=== PATIENT | male | born 1950 | race Caucasian/White ===

== ENCOUNTER 2017-01-31 10:27 | Inpatient (IN) | payer MEDICARE, BC ==
--- NOTE | 2017-01-31 10:45 | EDM.PDOC ---
ED HPI GENERAL MEDICAL PROBLEM - General Chief Complaint: General Stated Complaint: [id number] FELL OF LADDER [id number] PAIN Time Seen by Provider: 01/31/17 10:41 Source of Information: Reports: Patient History Limitations: Reports: No Limitations - History of Present Illness INITIAL COMMENTS - FREE TEXT/NARRATIVE: 66 yo white male c/o back pain and difficulty sleeping since fall on 2016. Pt. had Lumbar CT on 01/22/2017 [facility] reports Compression Fratures T9 and L5 Vertebral bodies (age indeterminate). Pt. reports no relief from the Hydrocodone Onset Date: 01/14/17 Onset Time: 12:00 Duration: Week(s):, Getting Worse Location: Reports: Back Quality: Reports: Ache Severity: Moderate Improves with: Reports: Rest Worsens with: Reports: Movement Context: Reports: Trauma, Other (arthritis) Associated Symptoms: Reports: No Other Symptoms Left Leg Pain Score (Numeric/FACES): 10 - Related Data Allergies Allergy/AdvReac Type Severity Reaction Status Date / Time bacitracin [From Cortisporin] Allergy Swelling Verified 01/31/17 10:52 hydrocortisone Allergy Swelling Verified 01/31/17 10:52 [From Cortisporin] neomycin [From Cortisporin] Allergy Swelling Verified 01/31/17 10:52 polymyxin B Allergy Swelling Verified 01/31/17 10:52 [From Cortisporin] Home Meds: Home Meds Aspirin 325 mg PO DAILY 05/02/13 [History] traZODone 100 mg PO BEDTIME 05/02/13 [History] Metoprolol Succinate [Toprol Xl] 25 mg PO DAILY 07/13/16 [History] Multivitamin [Daily Multiple Vitamin] 1 tab PO DAILY 07/14/16 [History] Sertraline [Zoloft] 125 mg PO DAILY 07/14/16 [History] Torsemide 20 mg PO BID 07/14/16 [History] atorvaSTATin [Lipitor] 20 mg PO DAILY 07/14/16 [History] Hydrocodone/Acetaminophen [Hydrocodon-Acetaminophen 5-325] 2 tab PO ASDIRECTED PRN 01/31/17 [History] predniSONE [predniSONE] 60 mg PO DAILY 01/31/17 [History] traZODone 01/31/17 [History] Social & Family History - Tobacco Use Second Hand Smoke Exposure: No - Alcohol Use Days Per Week of Alcohol Use: 0 - Recreational Drug Use Recreational Drug Use: No ED ROS GENERAL - Review of Systems Review Of Systems: See Below Constitutional: Reports: Weight Loss HEENT: Reports: No Symptoms Respiratory: Reports: No Symptoms Cardiovascular: Reports: No Symptoms Endocrine: Reports: No Symptoms GI/Abdominal: Reports: No Symptoms : Reports: No Symptoms Musculoskeletal: Reports: Back Pain Skin: Reports: No Symptoms Neurological: Reports: No Symptoms Psychiatric: Reports: No Symptoms Hematologic/Lymphatic: Reports: No Symptoms Immunologic: Reports: No Symptoms ED EXAM, GENERAL - Physical Exam Exam: See Below Exam Limited By: No Limitations General Appearance: Alert, No Apparent Distress, Obese Eye Exam: Bilateral Eye: EOMI Ears: Normal External Exam Ear Exam: Bilateral Ear: TM normal Nose: Normal Inspection, Normal Mucosa Throat/Mouth: Normal Inspection, Normal Lips Head: Atraumatic, Normocephalic Neck: Normal Inspection, Supple Respiratory/Chest: No Respiratory Distress, Lungs Clear Cardiovascular: Normal Peripheral Pulses, Regular Rate, Rhythm Peripheral Pulses: 2+: Femoral (L), Femoral (R) GI/Abdominal: Normal Bowel Sounds, Soft Back Exam: Normal Inspection, Decreased Range of Motion, Other (low back tenderness) Extremities: Normal Inspection, Normal Range of Motion Neurological: Alert, Oriented, CN II-XII Intact, Normal Cognition Psychiatric: Anxious Skin Exam: Warm, Dry Lymphatic: No Adenopathy Course - Vital Signs Last Recorded V/S: Last Vital Signs Temp 36.1 C 01/31/17 10:35 Pulse 96 01/31/17 10:35 Resp 20 01/31/17 10:35 BP 114/65 01/31/17 10:35 Pulse Ox 99 01/31/17 10:35 - Orders/Labs/Meds Orders: Active Orders 24 hr Category Date Time Status UA W/MICROSCOPIC [URIN] Stat Lab 01/31/17 11:42 Ordered Labs: Laboratory Tests 01/31/17 01/31/17 Range/Units 11:04 11:04 WBC 12.0 H (5.0-10.0) 10^3/uL RBC 5.12 (4.6-6.2) 10^6/uL Hgb 16.1 (14.0-18.0) g/dL Hct 48.1 (40.0-54.0) % MCV 93.9 (80-100) fL MCH 31.4 (27.0-34.0) pg MCHC 33.5 (33.0-35.0) g/dL Plt Count 222 (150-450) 10^3/uL Neut % (Auto) 77.5 H (42.2-75.2) % Lymph % (Auto) 13.9 L (20.5-50.1) % [place] % (Auto) 6.4 (2-8) % Eos % (Auto) 2.0 (1.0-3.0) % Baso % (Auto) 0.2 (0.0-1.0) % Add Manual Diff Yes Neutrophils % (Manual) 82 % Band Neutrophils % 1 % Lymphocytes % (Manual) 13 % Monocytes % (Manual) 3 % Eosinophils % (Manual) 1 % Sodium 137 (135-145) mmol/L Potassium 3.8 (3.6-5.0) mmol/L Chloride 95 L (101-111) mmol/L Carbon Dioxide 27.0 (21.0-31.0) mmol/L Anion Gap 18.8 BUN 23 H (7-18) mg/dL Creatinine 0.9 (0.6-1.3) mg/dL Est Cr Clr Drug Dosing 96.44 mL/min Estimated GFR (MDRD) > 60 BUN/Creatinine Ratio 25.55 Glucose 158 H (74-105) mg/dL Calcium 9.7 (8.4-10.2) mg/dl Total Bilirubin 1.1 H (0.2-1.0) mg/dL AST 44 H (10-42) IU/L ALT 63 H (10-60) IU/L Alkaline Phosphatase 216 H (42-121) IU/L Total Protein 7.7 (6.7-8.2) g/dl Albumin 3.9 (3.2-5.5) g/dl Globulin 3.8 Albumin/Globulin Ratio 1.03 Meds: Medications Discontinued Medications Generic Name Dose Route Start Last Admin Trade Name Freq PRN Reason Stop Dose Admin Hydromorphone HCl 1 mg 01/31/17 10:52 01/31/17 11:17 Dilaudid IVPUSH 01/31/17 10:53 1 mg ONETIME ONE Administration Ketorolac Tromethamine 30 mg 01/31/17 10:52 01/31/17 11:18 Toradol IVPUSH 01/31/17 10:53 30 mg ONETIME ONE Administration Lorazepam 1 mg 01/31/17 11:07 Ativan IVPUSH 01/31/17 11:08 ONETIME ONE Orphenadrine Citrate 60 mg 01/31/17 10:52 01/31/17 11:09 Norflex IM 01/31/17 10:53 60 mg NOW STA Administration Departure - Departure Time of Disposition: 11:50 Disposition: Admitted As Inpatient 64 Condition: Fair Clinical Impression: DDD (degenerative disc disease), lumbar - Discharge Information Referrals: Rosas Linton MD [Physician] - Forms: ED Department Discharge - My Orders Last 24 Hours: My Active Orders 01/31/17 11:42 UA W/MICROSCOPIC [URIN] Stat - Assessment/Plan Last 24 Hours: My Active Orders 01/31/17 11:42 UA W/MICROSCOPIC [URIN] Stat
[2017-01-31] MEDS ORDERED: Ketorolac 30 MG/ML SDV IVPUSH ONE (10:52)
[2017-01-31] MEDS ORDERED: HYDROmorphone 1 MG/ML Syringe IVPUSH ONE (10:52)
[2017-01-31] MEDS ORDERED: LORazepam 2 MG/ML Syringe IVPUSH ONE (11:07)
[2017-01-31 11:32] LABS: CHLORIDE,CL 95 mmol/L (101-111); SODIUM,NA 137 mmol/L (135-145)
[2017-01-31] MEDS ORDERED: HYDROmorphone 1 MG/ML Syringe IVPUSH PRN (12:09)
[2017-01-31] MEDS ORDERED: Docusate Sodium 100 MG Cap PO PRN (12:09)
[2017-01-31] MEDS ORDERED: Sodium Chloride 0.9% 10 ML Syringe FLUSH PRN (12:09)
[2017-01-31] MEDS ORDERED: Acetaminophen 325 MG Tab PO PRN (12:09)
[2017-01-31] MEDS ORDERED: LORazepam 1 MG Tab PO PRN (12:18)
[2017-01-31] MEDS: Acetaminophen/HYDROcodone 325-10 MG Tab PO PRN ×2 (16:35→20:37)
--- NOTE | 2017-01-31 19:15 | HP ---
CHIEF COMPLAINT: Low back pain, radiating to the left leg. HISTORY OF PRESENT ILLNESS: The patient is a 66-year-old gentleman who was admitted through the emergency room because the patient continued to have low back pain radiating to the left leg, and this has been going on since January 14 after he fell off the ladder. The patient has been seen by Montse Durbin NP, at the clinic. He had a CAT scan of the LS spine on 01/22/2017 which showed compression fracture of T9 and L5; and he has been given hydrocodone 5/325 two tablets every 6 hours, but it is just not cutting off the pain. He has difficulty sleeping. He also complained that his left foot is feeling numb. He denies though any bowel or bladder incontinence. Denies any fever or chills, chest pain, shortness of breath, nor any other complaints. PAST MEDICAL HISTORY: Remarkable for atrial fibrillation/flutter, status post pacemaker placement. He has had a pulmonary fibrosis, hypokalemia, disk disease of the LS spine, and obesity. FAMILY HISTORY: Noncontributory. SOCIAL HISTORY: The patient is . Lives with his . Nonsmoker. Nonalcohol drinker. HOME MEDICATIONS: 1. Prednisone. 2. Aspirin. 3. Hydrocodone. 4. Multivitamins. 5. Metoprolol. 6. Lipitor. 7. Torsemide. 8. Zoloft. 9. Trazodone. ALLERGIES: Bacitracin, hydrocortisone, neomycin, and polymyxin. REVIEW OF SYSTEMS: As in HPI. The rest of the review of systems is negative. PHYSICAL EXAMINATION: General: The patient is alert, oriented, in moderate distress from the low back pain. Vital Signs: Blood pressure is 129/82, pulse of 74, respirations of 18. HEENT: Normocephalic. There is pink palpebral conjunctiva. Sclerae anicteric. Neck: No JVD. No lymphadenopathy. Heart: Regular rate and rhythm. Normal S1 and S2. No gallops. No rubs. Lungs: Diminished breath sounds on both bases but no significant crackles, no wheezing. Abdomen: Morbidly obese, but soft and nontender. Bowel sounds positive. Extremities: Remarkable for stasis changes bilaterally and trace to 1+ bilateral pedal edema. No calf tenderness, no signs of cellulitis, and straight leg raising is positive on the left leg. Spine: There is also reproducible tenderness on the LS spine with palpation. LABORATORY DATA: CBC; WBC is 12, hemoglobin is 16.1, hematocrit is 48.1, platelet is 222. Comp panel; chloride of 95, BUN is 23, glucose is 158, bilirubin of 1.1, AST is 44, ALT of 63, alkaline phosphatase is 216. Urinalysis unremarkable. ADMITTING DIAGNOSES: 1. Intractable low back pain, radiating to the left leg secondary to compression fracture of T9 and L5. 2. History of fall. 3. Morbid obesity. 4. History of atrial flutter, status post permanent pacemaker placement. 5. Pulmonary fibrosis. TREATMENT PLAN: The patient is going to be admitted to Acute Care. He will be started on IV pain medication to control the pain as this is not being controlled by his oral hydrocodone at home. He will be on some muscle relaxants, and we will send him for physical therapy for evaluation and management. He also will be resumed on his home medication and the rest of the management as necessary. The patient is a full code. [facility] /[id number]
[2017-01-31] MEDS: Torsemide 20 MG Tab PO SCH (19:23)
[2017-01-31] MEDS: Albuterol/Ipratropium 3.0-0.5 MG/3 ML Neb Soln NEB SCH ×2 (19:24→23:43)
[2017-01-31] MEDS: Budesonide 0.5 MG/2 ML Neb Susp INH SCH (19:25)
[2017-01-31] MEDS: traZODone 50 MG Tab PO SCH (20:36)
[2017-01-31] MEDS: Cyclobenzaprine 10 MG Tab PO SCH (20:38)
[2017-02-01] MEDS: Albuterol/Ipratropium 3.0-0.5 MG/3 ML Neb Soln NEB SCH ×7 (03:52→22:11)
[2017-02-01] MEDS: Acetaminophen/HYDROcodone 325-10 MG Tab PO PRN ×2 (03:57→09:00)
[2017-02-01] MEDS: Acetaminophen/oxyCODONE 325-5 MG Tab PO PRN ×2 (08:30→16:34)
[2017-02-01] MEDS: Enoxaparin 40 MG/0.4 ML Syringe SUBCUT SCH (08:47)
[2017-02-01] MEDS: atorvaSTATin 20 MG Tab PO SCH (08:48)
[2017-02-01] MEDS: predniSONE 20 MG Tab PO SCH (08:51)
[2017-02-01] MEDS: Aspirin 325 MG Tab PO SCH (08:51)
[2017-02-01] MEDS: Sertraline 50 MG Tab PO SCH (08:58)
[2017-02-01] MEDS: Metoprolol Succinate 25 MG Tab.ER PO SCH (08:59)
[2017-02-01] MEDS: Torsemide 20 MG Tab PO SCH ×2 (08:59→14:40)
[2017-02-01] MEDS: Multivitamins,Therapeutic Tab PO SCH (09:00)
[2017-02-01] MEDS ORDERED: Sulfamethoxazole/Trimethoprim 800-160 MG Tab PO SCH (09:00)
[2017-02-01] MEDS: Cyclobenzaprine 10 MG Tab PO SCH ×2 (09:00→20:45)
[2017-02-01] MEDS: Budesonide 0.5 MG/2 ML Neb Susp INH SCH ×4 (09:01→18:22)
--- NOTE | 2017-02-01 11:06 | PCM.PN ---
- General Info Date of Service: 02/01/17 Admission Dx/Problem (Free Text): Intractable lower back pain Subjective Update: Patient stated that his lower back pain is somewhat better. He is still complaining of lower back pain radiates to his left leg with left foot numbness. He denies lower extremities weakness, difficulty urinating or defecating, genital numbness or tingling, fever, chills, nausea, vomiting, abdominal pain, diarrhea, any other symptoms or concerns. - Patient Data Vitals - Most Recent: Last Vital Signs Temp 36.1 C 02/01/17 07:53 Pulse 78 02/01/17 09:37 Resp 20 02/01/17 07:53 BP 115/53 L 02/01/17 08:59 Pulse Ox 96 02/01/17 07:53 Weight - Most Recent: 141.067 kg I&O - Last 24 Hours: Intake & Output 01/31/17 02/01/17 02/01/17 22:59 06:59 14:59 Intake Total 200 200 Output Total 225 1600 Balance -25 -1400 Med Orders - Current: Current Medications Acetaminophen (Tylenol) 650 mg PO Q4H PRN PRN Reason: Pain (Mild 1-3)/fever Albuterol/Ipratropium (Duoneb 3.0-0.5 Mg/3 Ml) 3 ml NEB Q4HRRT [facility] Last Admin: 02/01/17 10:24 Dose: Not Given Aspirin (Aspirin) 325 mg PO DAILY [facility] Last Admin: 02/01/17 08:51 Dose: 325 mg Atorvastatin Calcium (Lipitor) 20 mg PO DAILY [facility] Last Admin: 02/01/17 08:48 Dose: 20 mg Budesonide (Pulmicort) 0.25 mg INH BIDRT [facility] Last Admin: 02/01/17 10:23 Dose: Not Given Cyclobenzaprine HCl (Flexeril) 10 mg PO BID [facility] Last Admin: 02/01/17 09:00 Dose: 10 mg Docusate Sodium (Colace) 100 mg PO BID PRN PRN Reason: Constipation Enoxaparin Sodium (Lovenox) 40 mg SUBCUT DAILY [facility] Last Admin: 02/01/17 08:47 Dose: 40 mg Hydromorphone HCl (Dilaudid) 0.5 mg IVPUSH Q2H PRN PRN Reason: Pain (severe 7-10) Lorazepam (Ativan) 1 mg PO BEDTIME PRN PRN Reason: Anxiety Metoprolol Succinate (Toprol Xl) 25 mg PO DAILY [facility] Last Admin: 02/01/17 08:59 Dose: 25 mg Multivitamins (Thera) 1 each PO DAILY [facility] Last Admin: 02/01/17 09:00 Dose: 1 each Prednisone (Prednisone) 60 mg PO DAILY [facility] Last Admin: 02/01/17 08:51 Dose: 60 mg Sertraline HCl (Zoloft) 125 mg PO DAILY [facility] Last Admin: 02/01/17 08:58 Dose: 125 mg Sodium Chloride (Saline Flush) 10 ml FLUSH ASDIRECTED PRN PRN Reason: Keep Vein Open Torsemide (Demadex) 20 mg PO BIDDIURETIC [facility] Last Admin: 02/01/17 08:59 Dose: 20 mg Trazodone HCl (Trazodone) 100 mg PO BEDTIME [facility] Last Admin: 01/31/17 20:36 Dose: 100 mg Trimethoprim/Sulfamethoxazole (Septra Ds) 1 tab PO MoWeFr@0900 [facility] Last Admin: 02/01/17 08:59 Dose: 1 tab Discontinued Medications Hydrocodone Bitart/Acetaminophen ([place] 325-10 Mg) 1 tab PO Q4H PRN PRN Reason: Pain (moderate 4-6) Last Admin: 02/01/17 09:00 Dose: 1 tab Hydromorphone HCl (Dilaudid) 1 mg IVPUSH ONETIME ONE Stop: 01/31/17 10:53 Last Admin: 01/31/17 11:17 Dose: 1 mg Ketorolac Tromethamine (Toradol) 30 mg IVPUSH ONETIME ONE Stop: 01/31/17 10:53 Last Admin: 01/31/17 11:18 Dose: 30 mg Lorazepam (Ativan) 1 mg IVPUSH ONETIME ONE Stop: 01/31/17 11:08 Last Admin: 01/31/17 11:57 Dose: Not Given Orphenadrine Citrate (Norflex) 60 mg IM NOW STA Stop: 01/31/17 10:53 Last Admin: 01/31/17 11:09 Dose: 60 mg - Exam General: Alert, Oriented, Cooperative, No Acute Distress, Mild Distress (From pain) HEENT: Pupils Equal, Pupils Reactive, EOMI, Mucous Membr. Moist/[place] Neck: Supple, Trachea Midline, No JVD Lungs: Clear to Auscultation, Normal Respiratory Effort Cardiovascular: Regular Rate, Regular Rhythm GI/Abdominal Exam: Normal Bowel Sounds, Soft, Non-Tender, No Organomegaly, No Distention, No Abnormal Bruit, No Mass, Pelvis Stable Back Exam: Normal Inspection, Decreased Range of Motion, Muscle Spasm, Paraspinal Tenderness, Vertebral Tenderness. No: CVA Tenderness (L), CVA Tenderness (R) Extremities: Normal Inspection, Normal Range of Motion, Non-Tender, No Pedal Edema, Normal Capillary Refill Skin: Warm, Dry, Intact Neurological: No New Focal Deficit Psy/Mental Status: Alert, Normal Affect, Normal Mood - Problem List Review Problem List Initiated/Reviewed/Updated: Yes - My Orders Last 24 Hours: My Active Orders 02/01/17 11:02 BASIC METABOLIC PANEL,BMP [CHEM] Routine CBC WITH AUTO DIFF [HEME] Routine Acetaminophen/oxyCODONE [Percocet 325-5 MG] 1 tab PO Q4H PRN - Plan Plan:: Acute on chronic lower back pain with radiculopathy to the left leg -Thoracolumbar -Change hydrocodone/acetaminophen to oxycodone/acetaminophen -Continue Flexeril -Dilaudid as needed -Continue prednisone 60 mg daily -Continue physical therapy Insomnia From pain Ativan as needed for sleep which we'll may help with his muscle spasm as well Leukocytosis WBC on admission 12,000 -Recheck CBC History of COPD without exacerbation Continue Pulmicort and DuoNeb Essential hypertension Continue metoprolol Continue Lovenox for DVT prophylaxis
[2017-02-01] MEDS: traZODone 50 MG Tab PO SCH (20:45)
[2017-02-02] MEDS: Acetaminophen/oxyCODONE 325-5 MG Tab PO PRN ×3 (01:25→10:23)
[2017-02-02] MEDS: Albuterol/Ipratropium 3.0-0.5 MG/3 ML Neb Soln NEB SCH ×4 (02:14→15:27)
[2017-02-02 06:56] LABS: CHLORIDE,CL 98 mmol/L (101-111); SODIUM,NA 141 mmol/L (135-145)
[2017-02-02] MEDS: Budesonide 0.5 MG/2 ML Neb Susp INH SCH (07:25)
[2017-02-02] MEDS: Aspirin 325 MG Tab PO SCH (10:14)
[2017-02-02] MEDS: Sertraline 50 MG Tab PO SCH (10:15)
[2017-02-02] MEDS: predniSONE 20 MG Tab PO SCH (10:16)
[2017-02-02] MEDS: atorvaSTATin 20 MG Tab PO SCH (10:17)
[2017-02-02] MEDS: Torsemide 20 MG Tab PO SCH ×2 (10:17→14:46)
[2017-02-02] MEDS: Cyclobenzaprine 10 MG Tab PO SCH (10:17)
[2017-02-02] MEDS: Multivitamins,Therapeutic Tab PO SCH (10:17)
[2017-02-02] MEDS: Metoprolol Succinate 25 MG Tab.ER PO SCH (10:18)
[2017-02-02] MEDS: Enoxaparin 40 MG/0.4 ML Syringe SUBCUT SCH (10:21)
[2017-02-02 10:25] VITALS: BP 118/59
[2017-02-02] MEDS ORDERED: Potassium Chloride 10 MEQ Tab.ER PO ONE (11:08)
--- NOTE | 2017-02-02 14:26 | PCM.DCSUM1 ---
Discharge Summary - Hospital Course Free Text/Narrative:: 66-year-old male was the past medical history of atrial fibrillation, pulmonary fibrosis, hypokalemia, and degenerative spine disease presented to the MRSA room for worsening lower back pain that radiates to left leg. His pain started after falling on his bottom last month and on January 22, 2017 CT scan of spine showed compression fracture of T9 and L5. Hydrocodone was not helping at home. Patient denies lower extremities weakness, difficulty urinating or defecating, genital numbness or tingling, abdominal pain, blood in the stool or black stool, chest pain, shortness breath, or any other symptoms or concern. Patient was started on hydromorphone IV and yesterday was started on Percocet and Flexeril and his pain is well controlled. Patient has not had any new symptoms since admission. Patient is discharged home to do outpatient physical therapy follow-up with primary care and neurosurgery and take Percocet and Flexeril. Lumbar x-ray is consistent with compression vertebrae fracture of T11 , T9, L5. Workup was significant for WBC of 12,000 which possibly from his chronic prednisone that he takes for his pulmonary fibrosis. Patient stated that his boilermaker mechanic want him to stay on prednisone 60 mg until he sees him in a few weeks. Patient potassium was 3.3 today so he was given potassium chloride 40 mEq by mouth once. Patient verbalized understanding and agreed with plan - Discharge Data Discharge Date: 02/02/17 Discharge Disposition: Home, Self-Care 01 Condition: Good - Patient Instructions Diet: Heart Healthy Diet Activity: As Tolerated Showering/Bathing: September Shower Notify Provider of: Fever, Increased Pain, Nausea and/or Vomiting - Discharge Plan Prescriptions/Med Rec: Acetaminophen/oxyCODONE [Percocet 325-5 MG] 1 tab PO Q4H PRN #30 tablet PRN Reason: Lower back pain Cyclobenzaprine [Flexeril] 10 mg PO TID PRN #30 tablet PRN Reason: Muscle Spasm Home Medications: Home Meds Aspirin 325 mg PO DAILY 05/02/13 [History] traZODone 100 mg PO BEDTIME 05/02/13 [History] Metoprolol Succinate [Toprol Xl] 25 mg PO DAILY 07/13/16 [History] Multivitamin [Daily Multiple Vitamin] 1 tab PO DAILY 07/14/16 [History] Sertraline [Zoloft] 125 mg PO DAILY 07/14/16 [History] Torsemide 20 mg PO BID 07/14/16 [History] atorvaSTATin [Lipitor] 20 mg PO DAILY 07/14/16 [History] Albuterol/Ipratropium [DuoNeb 3.0-0.5 MG/3 ML] 3 ml NEB Q4HRRT 01/31/17 [History ] Budesonide [Pulmicort] 0.25 mg NEB BIDRT 01/31/17 [History] Sulfamethoxazole/Trimethoprim [Bactrim Ds Tablet] 1 each PO .TRIWEEKLY 01/31/17 [History] predniSONE 60 mg PO DAILY 01/31/17 [History] Acetaminophen/oxyCODONE [Percocet 325-5 MG] 1 tab PO Q4H PRN #30 tablet [Rx] Cyclobenzaprine [Flexeril] 10 mg PO TID PRN #30 tablet 02/02/17 [Rx] Patient Handouts: Acetaminophen; Oxycodone tablets, Back Pain, Adult, Easy-to- Read, Spinal Compression Fracture Referrals: Rosas Linton MD [Physician] - - Patient Data Vitals - Most Recent: Last Vital Signs Temp 36.6 C 02/02/17 10:20 Pulse 82 02/02/17 11:00 Resp 20 02/02/17 10:20 BP 118/59 L 02/02/17 10:20 Pulse Ox 98 02/02/17 10:20 Weight - Most Recent: 141.067 kg I&O - Last 24 hours: Intake & Output 02/01/17 02/02/17 02/02/17 22:59 06:59 14:59 Intake Total 621 270 2640 Output Total 1850 750 650 Balance -1450 -200 530 Lab Results - Last 24 hrs: Laboratory Results - last 24 hr 02/02/17 02/02/17 Range/Units 06:09 06:09 WBC 12.4 H (5.0-10.0) 10^3/uL RBC 4.82 (4.6-6.2) 10^6/uL Hgb 15.0 (14.0-18.0) g/dL Hct 46.4 (40.0-54.0) % MCV 96.3 (80-100) fL MCH 31.1 (27.0-34.0) pg MCHC 32.3 L (33.0-35.0) g/dL Plt Count 226 (150-450) 10^3/uL Neut % (Auto) 71.7 (42.2-75.2) % Lymph % (Auto) 18.9 L (20.5-50.1) % [place] % (Auto) 8.2 H (2-8) % Eos % (Auto) 1.0 (1.0-3.0) % Baso % (Auto) 0.2 (0.0-1.0) % Sodium 141 (135-145) mmol/L Potassium 3.3 L (3.6-5.0) mmol/L Chloride 98 L (101-111) mmol/L Carbon Dioxide 33.0 H (21.0-31.0) mmol/L Anion Gap 13.3 BUN 24 H (7-18) mg/dL Creatinine 1.0 (0.6-1.3) mg/dL Est Cr Clr Drug Dosing 86.80 mL/min Estimated GFR (MDRD) > 60 Glucose 96 (74-105) mg/dL Calcium 9.2 (8.4-10.2) mg/dl Med Orders - Current: Current Medications Acetaminophen (Tylenol) 650 mg PO Q4H PRN PRN Reason: Pain (Mild 1-3)/fever Albuterol/Ipratropium (Duoneb 3.0-0.5 Mg/3 Ml) 3 ml NEB Q4HRRT [facility] Last Admin: 02/02/17 11:49 Dose: 3 ml Aspirin (Aspirin) 325 mg PO DAILY [facility] Last Admin: 02/02/17 10:14 Dose: 325 mg Atorvastatin Calcium (Lipitor) 20 mg PO DAILY [facility] Last Admin: 02/02/17 10:17 Dose: 20 mg Budesonide (Pulmicort) 0.25 mg INH BIDRT [facility] Last Admin: 02/02/17 07:25 Dose: 0.25 mg Cyclobenzaprine HCl (Flexeril) 10 mg PO BID [facility] Last Admin: 02/02/17 10:17 Dose: 10 mg Docusate Sodium (Colace) 100 mg PO BID PRN PRN Reason: Constipation Enoxaparin Sodium (Lovenox) 40 mg SUBCUT DAILY [facility] Last Admin: 02/02/17 10:21 Dose: 40 mg Hydromorphone HCl (Dilaudid) 0.5 mg IVPUSH Q2H PRN PRN Reason: Pain (severe 7-10) Lorazepam (Ativan) 1 mg PO BEDTIME PRN PRN Reason: Anxiety Metoprolol Succinate (Toprol Xl) 25 mg PO DAILY [facility] Last Admin: 02/02/17 10:18 Dose: 25 mg Multivitamins (Thera) 1 each PO DAILY [facility] Last Admin: 02/02/17 10:17 Dose: 1 each Oxycodone/Acetaminophen (Percocet 325-5 Mg) 1 tab PO Q4H PRN PRN Reason: Moderate to severe back pain Last Admin: 02/02/17 10:23 Dose: 1 tab Prednisone (Prednisone) 60 mg PO DAILY [facility] Last Admin: 02/02/17 10:16 Dose: 60 mg Sertraline HCl (Zoloft) 125 mg PO DAILY [facility] Last Admin: 02/02/17 10:15 Dose: 125 mg Sodium Chloride (Saline Flush) 10 ml FLUSH ASDIRECTED PRN PRN Reason: Keep Vein Open Last Admin: 02/01/17 21:00 Dose: 10 ml Torsemide (Demadex) 20 mg PO BIDDIURETIC [facility] Last Admin: 02/02/17 10:17 Dose: 20 mg Trazodone HCl (Trazodone) 100 mg PO BEDTIME [facility] Last Admin: 02/01/17 20:45 Dose: 100 mg Trimethoprim/Sulfamethoxazole (Septra Ds) 1 tab PO MoWeFr@0900 [facility] Last Admin: 02/01/17 08:59 Dose: 1 tab Discontinued Medications Hydrocodone Bitart/Acetaminophen ([place] 325-10 Mg) 1 tab PO Q4H PRN PRN Reason: Pain (moderate 4-6) Last Admin: 02/01/17 09:00 Dose: 1 tab Hydromorphone HCl (Dilaudid) 1 mg IVPUSH ONETIME ONE Stop: 01/31/17 10:53 Last Admin: 01/31/17 11:17 Dose: 1 mg Ketorolac Tromethamine (Toradol) 30 mg IVPUSH ONETIME ONE Stop: 01/31/17 10:53 Last Admin: 01/31/17 11:18 Dose: 30 mg Lorazepam (Ativan) 1 mg IVPUSH ONETIME ONE Stop: 01/31/17 11:08 Last Admin: 01/31/17 11:57 Dose: Not Given Orphenadrine Citrate (Norflex) 60 mg IM NOW STA Stop: 01/31/17 10:53 Last Admin: 01/31/17 11:09 Dose: 60 mg Potassium Chloride (Klor-Con 10) 40 meq PO ONETIME ONE Stop: 02/02/17 11:09 Last Admin: 02/02/17 11:46 Dose: 40 meq - Exam General: Reports: Alert, Oriented, Cooperative, No Acute Distress. Denies: Moderate Distress, Severe Distress, Sedated, Lethargic, Obtunded HEENT: Reports: Pupils Equal, Pupils Reactive, EOMI, Mucous Membr. Moist/[place] Neck: Reports: Supple, Trachea Midline, No JVD Lungs: Reports: Clear to Auscultation, Normal Respiratory Effort Cardiovascular: Reports: Regular Rate, Regular Rhythm GI/Abdominal Exam: Normal Bowel Sounds, Soft, Non-Tender, No Organomegaly, No Distention, No Abnormal Bruit, No Mass, Pelvis Stable (Male) Exam: Deferred Rectal (Males) Exam: Deferred Back Exam: Reports: Decreased Range of Motion, Muscle Spasm, Paraspinal Tenderness, Vertebral Tenderness Extremities: Normal Inspection, Normal Range of Motion, Non-Tender, No Pedal Edema, Normal Capillary Refill Skin: Reports: Warm, Dry Neurological: Reports: No New Focal Deficit Psy/Mental Status: Reports: Alert, Normal Affect, Normal Mood *Q Meaningful Use (DIS) - VTE *Q VTE Criteria *Q: - Stroke *Q Stroke Criteria *Q: - AMI *Q AMI Criteria *Q:
== END 2017-02-02 15:20 | disposition home or self-care (01) | DRG 948 ==
LOC: DL.ED 10:27 → UNDOADMIN 11:57 → DL.MS 11:57
PROVIDERS: ADMIT Internal Medicine; ATTEND Internal Medicine
DX: G89.11 Acute pain due to trauma (principal); M51.36 Other intervertebral disc degeneration, lumbar region; I48.92 Unspecified atrial flutter; S22.059A Unspecified fracture of T5-T6 vertebra, initial encounter for closed fracture; S32.059A Unspecified fracture of fifth lumbar vertebra, initial encounter for closed fracture; M54.5 Low back pain; M54.10 Radiculopathy, site unspecified; M51.37 Other intervertebral disc degeneration, lumbosacral region; I48.91 Unspecified atrial fibrillation; E87.6 Hypokalemia; J84.10 Pulmonary fibrosis, unspecified; Z68.37 Body mass index [BMI] 37.0-37.9, adult; Z79.82 Long term (current) use of aspirin; E66.01 Morbid (severe) obesity due to excess calories; Z91.81 History of falling; G47.01 Insomnia due to medical condition; W11.XXXA Fall on and from ladder, initial encounter; Z95.0 Presence of cardiac pacemaker; Z79.899 Other long term (current) drug therapy; Z88.8 Allergy status to other drugs, medicaments and biological substances; J44.9 Chronic obstructive pulmonary disease, unspecified; G89.29 Other chronic pain; I10 Essential (primary) hypertension
CPT/HCPCS: 36415; 80053; 81001; 85025; 96372; 96374; 96375; 99284; J1170; J1885; J2360; 72080; 80048; 94640; 94640-76; 97162-GP; 99283; A9270-GY; J1650; J7050

== ENCOUNTER 2017-09-20 12:38 | Observation (INO) | payer MEDICARE, BC ==
[2017-09-20] MEDS ORDERED: Ondansetron 4 MG Tab.DIS PO PRN (13:58)
--- NOTE | 2017-09-20 14:12 | PCM.HP ---
H&P History of Present Illness - General Date of Service: 09/20/17 Admit Problem/Dx: Admission Diagnosis/Problem Admission Diagnosis/Problem Back pain Source of Information: Patient, Provider - History of Present Illness Initial Comments - Free Text/Narative: 58-year-old gentleman with a history of prior lumbar spine compression fracture. Has a history of vertebroplasty. The patient has been getting injections a in [place]. He has been having increased back pain in the past 2 months which got further exacerbated in the past 2 days after doing gardening. Scribing low back pain across of the lumbar spine and also in the paraspinal muscles. This is worse with activity as bending, started to take Percocet which provides some relief. Heat therapy is improving the pain. No associated urine or bowel incontinence. No problem with motor weakness in the lower extremities. The pain is sharp and nonradiating. - Related Data Allergies/Adverse Reactions: Allergies Allergy/AdvReac Type Severity Reaction Status Date / Time bacitracin [From Cortisporin] Allergy Swelling Verified 09/20/17 13:16 hydrocortisone Allergy Swelling Verified 09/20/17 13:16 [From Cortisporin] neomycin [From Cortisporin] Allergy Swelling Verified 09/20/17 13:16 polymyxin B Allergy Swelling Verified 09/20/17 13:16 [From Cortisporin] Home Medications: Home Meds traZODone 100 mg PO BEDTIME 05/02/13 [History] Metoprolol Succinate [Toprol Xl] 25 mg PO DAILY 07/13/16 [History] Multivitamin [Daily Multiple Vitamin] 1 tab PO DAILY 07/14/16 [History] Torsemide 10 mg PO BID 07/14/16 [History] atorvaSTATin [Lipitor] 20 mg PO DAILY 07/14/16 [History] Albuterol/Ipratropium [DuoNeb 3.0-0.5 MG/3 ML] 3 ml NEB BID 01/31/17 [History] Budesonide [Pulmicort] 0.25 mg NEB BIDRT 01/31/17 [History] Sulfamethoxazole/Trimethoprim [Bactrim Ds Tablet] 1 each PO .TRIWEEKLY 01/31/17 [History] predniSONE 20 mg PO DAILY 01/31/17 [History] Acetaminophen/oxyCODONE [Percocet 325-5 MG] 1 tab PO Q6H PRN 09/20/17 [History] DULoxetine [Cymbalta] 30 mg PO DAILY 09/20/17 [History] Fluticasone Propionate [Flonase] 16 gm NS BID 09/20/17 [History] Gabapentin [Neurontin] 100 mg PO DAILY 09/20/17 [History] Warfarin [Coumadin] 5 mg PO .SA,LEROY 09/20/17 [History] Warfarin [Coumadin] 7.5 mg PO .M,T,W,TH,F 09/20/17 [History] Past Medical History HEENT History: Reports: Impaired Vision Other HEENT History: wears glasses Cardiovascular History: Reports: Afib, High Cholesterol, Hypertension, Pacemaker , Other (See Below) Other Cardiovascular History: pacemaker placed 11/26/16 Respiratory History: Reports: Sleep Apnea, Other (See Below) Other Respiratory History: idiopathic pulmonary fibrosis Gastrointestinal History: Reports: None Genitourinary History: Reports: None Musculoskeletal History: Reports: Back Pain, Chronic, Fracture Neurological History: Reports: Neuropathy, Peripheral Psychiatric History: Reports: Addiction Endocrine/Metabolic History: Reports: Obesity/BMI 30+ Hematologic History: Reports: None Immunologic History: Reports: None Oncologic (Cancer) History: Reports: None Dermatologic History: Reports: None - Infectious Disease History Infectious Disease History: Reports: None - Past Surgical History HEENT Surgical History: Reports: None Cardiovascular Surgical History: Reports: Cardiac Ablation Respiratory Surgical History: Reports: Lung Biopsies, Other (See Below) Other Respiratory Surgeries/Procedures: 11/25/16 check pulmonary fibrosis status GI Surgical History: Reports: None Male Surgical History: Reports: None Endocrine Surgical History: Reports: None Neurological Surgical History: Reports: Vertebroplasty Musculoskeletal Surgical History: Reports: Arthroscopic Knee Oncologic Surgical History: Reports: None Social & Family History - Family History Family Medical History: Noncontributory Cardiac: Reports: [place] Respiratory: Reports: COPD Neurological: Reports: CVA Oncologic: Reports: Lung - Tobacco Use Smoking Status *Q: Former Smoker Years of Tobacco use: 25 Packs/Tins Daily: 1.5 Used Tobacco, but Quit: Yes Month/Year Tobacco Last Used: Apr, 2001 Second Hand Smoke Exposure: No - Caffeine Use Caffeine Use: Reports: Coffee - Alcohol Use Days Per Week of Alcohol Use: 0 - Recreational Drug Use Recreational Drug Use: No H&P Review of Systems - Review of Systems: Review Of Systems: See Below General: Denies: Fever Pulmonary: Reports: Shortness of Breath (Chronic, on home oxygen) Cardiovascular: Denies: Chest Pain, Palpitations Gastrointestinal: Denies: Abdominal Pain, Nausea Genitourinary: Denies: Dysuria Musculoskeletal: Reports: Back Pain, Muscle Pain (Low back), Muscle Stiffness. Denies: Joint Swelling Psychiatric: Reports: No Symptoms Exam - Exam Exam: See Below - Vital Signs Vital Signs: Last Vital Signs Temp 37.0 C 09/20/17 13:02 Pulse 80 09/20/17 13:02 Resp 20 09/20/17 13:02 BP 143/82 H 09/20/17 13:02 Pulse Ox 96 09/20/17 13:02 - Exam Quality Assessment: Supplemental Oxygen General: Alert, Oriented Neck: Supple Lungs: Normal Respiratory Effort, Decreased Breath Sounds Cardiovascular: Regular Rate, Regular Rhythm GI/Abdominal Exam: Normal Bowel Sounds, Soft, Non-Tender, Other (Obese) Extremities: Pedal Edema (1+ bilateral) Skin: Warm, Dry, Other (Small laceration on the right lower extremity) Neurological: Cranial Nerves Intact, Strength Equal Bilateral Neuro Extensive - Mental Status: Alert, Oriented x3, Normal Mood/Affect Psychiatric: Alert, Normal Affect, Normal Mood - Patient Data Imaging Impressions Last 24 hrs: DATE OF STUDY: 09/20/2017 12:10 PM STUDY: XR LUMBAR SPINE 2-3 VIEW HISTORY: severe back pain COMPARISONS: Lumbar spine radiographs 01/20/2017 FINDINGS: 5 lumbar type vertebral bodies. Vertebroplasty of L5, new since the prior study. Compression fracture of L1 is new and appear subacute in nature. Mild compression of the L2 superior endplate is new. Lumbar facet arthritis. [id number] degenerative changes of the lumbar spine. Vertebroplasty of T9. Normal alignment. - Problem List (1) Acute exacerbation of chronic low back pain SNOMED Code(s): 389281089 ICD Code: M54.5 - LOW BACK PAIN; G89.29 - OTHER CHRONIC PAIN Status: Acute Current Visit: No Problem List Initiated/Reviewed/Updated: Yes Orders Last 24hrs: Active Orders 24 hr Category Date Time Status Patient Status [ADT] Routine ADT 09/20/17 13:58 Ordered Cooling Warming Measures [RC] ASDIRECTED Care 09/20/17 13:47 Ordered Oxygen Therapy [RC] PRN Care 09/20/17 13:58 Ordered Peripheral IV Care [RC] . DIRECTED Care 09/20/17 13:59 Ordered Up With Assistance [RC] ASDIRECTED Care 09/20/17 13:58 Ordered VTE/DVT Education [RC] PER UNIT ROUTINE Care 09/20/17 13:58 Ordered Vital Signs [RC] Q4H Care 09/20/17 13:58 Ordered OT Evaluation and Treatment [CONS] Routine Cons 09/20/17 13:58 Ordered PT Evaluation and Treatment [CONS] Routine Cons 09/20/17 13:58 Ordered Regular Diet [DIET] Diet 09/20/17 Dinner Ordered Acetaminophen [Tylenol] Med 09/20/17 14:00 Ordered 650 mg PO TID Albuterol/Ipratropium [DuoNeb 3.0-0.5 MG/3 ML] Med 09/20/17 21:00 Ordered 3 ml NEB BID Budesonide [Pulmicort] Med 09/20/17 18:00 Ordered 0.25 mg NEB BIDRT Cyclobenzaprine [Flexeril] Med 09/20/17 13:46 Ordered 5 mg PO TID PRN DULoxetine [Cymbalta] Med 09/20/17 14:00 Ordered 30 mg PO DAILY Fluticasone Propionate [Flonase] Med 09/20/17 21:00 Ordered 16 gm NASBOTH BID Gabapentin [Neurontin] Med 09/20/17 14:00 Ordered 100 mg PO TID Metoprolol Succinate [Toprol XL] Med 09/20/17 14:00 Ordered 25 mg PO DAILY Multivitamin [Daily Multiple Vitamin] Med 09/21/17 09:00 Ordered 1 tab PO DAILY Ondansetron [Zofran ODT] Med 09/20/17 13:58 Ordered 4 mg PO Q6H PRN Sodium Chloride 0.9% [Saline Flush] Med 09/20/17 13:58 Ordered 10 ml FLUSH ASDIRECTED PRN Sulfamethoxazole/Trimethoprim [Septra DS] Med 09/20/17 14:00 Ordered 1 each PO .TRIWEEKLY Torsemide [Demadex] Med 09/20/17 21:00 Ordered 10 mg PO BID Warfarin Pharmacy to Dose [Pharmacy to Dose - Warfarin] Med 09/20/17 14:00 Ordered 1 dose .XX ASDIRECTED atorvaSTATin [Lipitor] Med 09/21/17 09:00 Ordered 20 mg PO DAILY oxyCODONE Med 09/20/17 13:48 Ordered 5 mg PO Q6H PRN predniSONE Med 09/20/17 14:00 Ordered 20 mg PO DAILY traZODone [traZODone] Med 09/20/17 21:00 Ordered 100 mg PO BEDTIME Antiembolic Hose [OM.PC] Per Unit Routine Oth 09/20/17 13:59 Ordered K Pad [Heat Therapy] [OM.PC] Routine Oth 09/20/17 13:47 Ordered Peripheral IV Insertion Adult [OM.PC] Routine Oth 09/20/17 13:58 Ordered Saline Lock Insert [OM.PC] Routine Oth 09/20/17 13:58 Ordered Resuscitation Status Routine Resus Stat 09/20/17 13:58 Ordered Medication Orders Acetaminophen (Tylenol) 650 mg PO TID [facility] Albuterol/Ipratropium (Duoneb 3.0-0.5 Mg/3 Ml) 3 ml NEB BID [place] Atorvastatin Calcium (Lipitor) 20 mg PO DAILY [facility] Cyclobenzaprine HCl (Flexeril) 5 mg PO TID PRN PRN Reason: back pain Duloxetine HCl (Cymbalta) 30 mg PO DAILY [facility] Fluticasone Propionate (Flonase) 16 gm NASBOTH BID [facility] Gabapentin (Neurontin) 100 mg PO TID [facility] Metoprolol Succinate (Toprol Xl) 25 mg PO DAILY [facility] Non-Formulary Medication (Budesonide [Pulmicort]) 0.25 mg NEB BIDRT [facility] Non-Formulary Medication (Multivitamin [Daily Multiple Vitamin]) 1 tab PO DAILY [facility] Non-Formulary Medication (Trazodone [Trazodone]) 100 mg PO BEDTIME [facility] Ondansetron HCl (Zofran Odt) 4 mg PO Q6H PRN PRN Reason: nausea, able to take PO Oxycodone HCl (Oxycodone) 5 mg PO Q6H PRN PRN Reason: Pain Prednisone (Prednisone) 20 mg PO DAILY [facility] Sodium Chloride (Saline Flush) 10 ml FLUSH ASDIRECTED PRN PRN Reason: Keep Vein Open Torsemide (Demadex) 10 mg PO BID [facility] Trimethoprim/Sulfamethoxazole (Septra Ds) tab PO .TRIWEEKLY [facility] Warfarin Sodium (Pharmacy To Dose - Warfarin) 1 dose .XX ASDIRECTED [facility] Assessment/Plan Comment:: 66-year-old with a history of thumb COPD with home oxygen, diabetes, paroxysmal atrial fibrillation on anticoagulation He has a history of back pain, vertebral fracture and vertebroplasty. #1 acute exacerbation of back pain Compared to prior studies compression fractures are seen. No lower extremity neurological deficit noted We'll treat with scheduled Tylenol, Lidoderm patch, Increase Neurontin Continue steroid Heat/cold pad As needed IV morphine for severe pain Physical and occupational therapy evaluation #2 history of atrial fibrillation status post ablation We will continue rate control with the metoprolol Antiembolic ablation with Coumadin #3 COPD with chronic hypoxemic respiratory failure Supplemental oxygen as needed, continue DuoNeb, Pulmicort, steroid While on high-dose steroid continue Bactrim prophylactic dose #4 chronic lower extremity swelling Continue diuretics #5 DVT prophylaxis with full dose anticoagulation with Coumadin
[2017-09-20] MEDS ORDERED: Morphine 2 MG/ML Syringe IVPUSH PRN (14:46)
[2017-09-20] MEDS ORDERED: Fluticasone Propionate Nasal Spray 16 GM Bottle NASBOTH SCH (21:00)
[2017-09-21] MEDS: Gabapentin 100 MG Cap PO SCH ×4 (03:09→21:52)
[2017-09-21] MEDS: DULoxetine 30 MG Cap PO SCH ×2 (03:09→08:45)
[2017-09-21] MEDS: Sulfamethoxazole/Trimethoprim 800-160 MG Tab PO SCH (03:09)
[2017-09-21] MEDS: Fluticasone Propionate Nasal Spray 16 GM Bottle NASBOTH SCH ×3 (03:10→21:56)
[2017-09-21] MEDS: Albuterol/Ipratropium 3.0-0.5 MG/3 ML Neb Soln NEB SCH ×3 (03:10→18:06)
[2017-09-21] MEDS: Acetaminophen 325 MG Tab PO SCH ×4 (03:10→21:52)
[2017-09-21] MEDS: traZODone 50 MG Tab PO SCH ×2 (03:10→21:52)
[2017-09-21] MEDS: Budesonide 0.5 MG/2 ML Neb Susp NEB SCH ×3 (03:10→18:06)
[2017-09-21] MEDS: Lidocaine 5% 700 MG Patch TOP SCH ×2 (03:10→08:43)
[2017-09-21] MEDS: Metoprolol Succinate 25 MG Tab.ER PO SCH ×2 (03:10→08:44)
[2017-09-21] MEDS: Sodium Chloride 0.9% 10 ML Syringe FLUSH PRN ×2 (05:17→21:57)
[2017-09-21] MEDS: Cyclobenzaprine 10 MG Tab PO PRN ×2 (06:19→17:43)
[2017-09-21] MEDS: oxyCODONE 5 MG Tab PO PRN ×2 (08:44→17:43)
[2017-09-21] MEDS: predniSONE 20 MG Tab PO SCH (08:44)
[2017-09-21] MEDS: Torsemide 20 MG Tab PO SCH ×2 (08:45→13:46)
[2017-09-21] MEDS: atorvaSTATin 20 MG Tab PO SCH (08:45)
[2017-09-21] MEDS: Multivitamins,Therapeutic Tab PO SCH (08:45)
[2017-09-21 11:39] LABS: CHLORIDE,CL 96 mmol/L (101-111); SODIUM,NA 138 mmol/L (135-145)
[2017-09-21] MEDS ORDERED: Potassium Chloride 10 MEQ Tab.ER PO ONE (13:13)
--- NOTE | 2017-09-21 13:17 | PCM.PN ---
- General Info Date of Service: 09/21/17 Subjective Update: the pain has much improved but still significant. Mostly on the left side radiating down towards the knee. Associated some numbness. He does feel that this has improved since admission. The pain has been infected on chronic. Has constipation. No fever, chills, chest pain, abdominal pain. - Review of Systems General: Denies: Fever, Weakness Pulmonary: Denies: Shortness of Breath Cardiovascular: Denies: Chest Pain Gastrointestinal: Denies: Abdominal Pain Neurological: Denies: Confusion - Patient Data Vitals - Most Recent: Last Vital Signs Temp 36.6 C 09/21/17 11:32 Pulse 74 09/21/17 11:32 Resp 20 09/21/17 11:32 BP 124/68 09/21/17 11:32 Pulse Ox 97 09/21/17 11:32 I&O - Last 24 Hours: Intake & Output 09/20/17 09/21/17 09/21/17 22:59 06:59 14:59 Intake Total 200 940 Output Total 500 350 Balance -300 590 Lab Results Last 24 Hours: Laboratory Results - last 24 hr 09/20/17 09/21/17 09/21/17 Range/Units 14:30 05:57 05:57 WBC 10.2 H (5.0-10.0) 10^3/uL RBC 4.18 L (4.6-6.2) 10^6/uL Hgb 13.4 L D (14.0-18.0) g/dL Hct 40.6 (40.0-54.0) % MCV 97.1 (80-100) fL MCH 32.1 (27.0-34.0) pg MCHC 33.0 (33.0-35.0) g/dL Plt Count 180 (150-450) 10^3/uL Neut % (Auto) 72.0 (42.2-75.2) % Lymph % (Auto) 18.9 L (20.5-50.1) % Sully % (Auto) 5.8 (2-8) % Eos % (Auto) 3.0 (1.0-3.0) % Baso % (Auto) 0.3 (0.0-1.0) % Add Manual Diff Yes Neutrophils % (Manual) 65 (42-75) % Lymphocytes % (Manual) 31 (20-50) % Monocytes % (Manual) 3 (2-8) % Eosinophils % (Manual) 1 (1-3) % PT 23.5 H D 16.7 H (9.0-12.0) SEC INR 2.4 H 1.7 H (0.9-1.2) Sodium (135-145) mmol/L Potassium (3.6-5.0) mmol/L Chloride (101-111) mmol/L Carbon Dioxide (21.0-31.0) mmol/L Anion Gap BUN (7-18) mg/dL Creatinine (0.6-1.3) mg/dL Est Cr Clr Drug Dosing Estimated GFR (MDRD) Glucose (74-105) mg/dL Calcium (8.4-10.2) mg/dl 09/21/17 Range/Units 05:57 WBC (5.0-10.0) 10^3/uL RBC (4.6-6.2) 10^6/uL Hgb (14.0-18.0) g/dL Hct (40.0-54.0) % MCV (80-100) fL MCH (27.0-34.0) pg MCHC (33.0-35.0) g/dL Plt Count (150-450) 10^3/uL Neut % (Auto) (42.2-75.2) % Lymph % (Auto) (20.5-50.1) % Sully % (Auto) (2-8) % Eos % (Auto) (1.0-3.0) % Baso % (Auto) (0.0-1.0) % Add Manual Diff Neutrophils % (Manual) (42-75) % Lymphocytes % (Manual) (20-50) % Monocytes % (Manual) (2-8) % Eosinophils % (Manual) (1-3) % PT (9.0-12.0) SEC INR (0.9-1.2) Sodium 138 (135-145) mmol/L Potassium 3.3 L (3.6-5.0) mmol/L Chloride 96 L (101-111) mmol/L Carbon Dioxide 35.0 H (21.0-31.0) mmol/L Anion Gap 10.3 BUN 20 H (7-18) mg/dL Creatinine 0.9 (0.6-1.3) mg/dL Est Cr Clr Drug Dosing TNP Estimated GFR (MDRD) > 60 Glucose 98 (74-105) mg/dL Calcium 9.2 (8.4-10.2) mg/dl Med Orders - Current: Current Medications Acetaminophen (Tylenol) 650 mg PO TID [facility] Last Admin: 09/21/17 08:45 Dose: 650 mg Albuterol/Ipratropium (Duoneb 3.0-0.5 Mg/3 Ml) 3 ml NEB BIDRT [facility] Last Admin: 09/21/17 07:46 Dose: 3 ml Atorvastatin Calcium (Lipitor) 20 mg PO DAILY [facility] Last Admin: 09/21/17 08:45 Dose: 20 mg Budesonide (Pulmicort) 0.25 mg NEB BIDRT [facility] Last Admin: 09/21/17 07:46 Dose: 0.25 mg Cyclobenzaprine HCl (Flexeril) 5 mg PO TID PRN PRN Reason: back pain Last Admin: 09/21/17 06:19 Dose: 5 mg Duloxetine HCl (Cymbalta) 30 mg PO DAILY [facility] Last Admin: 09/21/17 08:45 Dose: 30 mg Fluticasone Propionate (Flonase) 0 gm NASBOTH BID [facility] Last Admin: 09/21/17 08:43 Dose: 1 spray Gabapentin (Neurontin) 100 mg PO TID [facility] Last Admin: 09/21/17 08:45 Dose: 100 mg Lidocaine (Lidoderm 5%) 700 mg TOP DAILY [facility] Last Admin: 09/21/17 08:43 Dose: 700 mg Methylcellulose (Citrucel) 500 mg PO DAILY [facility] Metoprolol Succinate (Toprol Xl) 25 mg PO DAILY [facility] Last Admin: 09/21/17 08:44 Dose: 25 mg Miscellaneous Information (Remove Patch) 1 ea TRDERM BEDTIME [facility] Last Admin: 09/21/17 03:10 Dose: Not Given Morphine Sulfate (Morphine) 1 mg IVPUSH Q2H PRN PRN Reason: severe pain Last Admin: 09/21/17 05:17 Dose: 1 mg Multivitamins (Thera) 1 each PO DAILY [facility] Last Admin: 09/21/17 08:45 Dose: 1 each Ondansetron HCl (Zofran Odt) 4 mg PO Q6H PRN PRN Reason: nausea, able to take PO Oxycodone HCl (Oxycodone) 5 mg PO Q6H PRN PRN Reason: Pain Last Admin: 09/21/17 08:44 Dose: 5 mg Potassium Chloride (Klor-Con 10) 40 meq PO ONETIME ONE Stop: 09/21/17 13:14 Prednisone (Prednisone) 20 mg PO DAILY@0800 [facility] Last Admin: 09/21/17 08:44 Dose: 20 mg Sodium Chloride (Saline Flush) 10 ml FLUSH ASDIRECTED PRN PRN Reason: Keep Vein Open Last Admin: 09/21/17 05:17 Dose: 10 ml Torsemide (Demadex) 10 mg PO BIDDIURETIC [facility] Last Admin: 09/21/17 08:45 Dose: 10 mg Trazodone HCl (Trazodone) 100 mg PO BEDTIME [facility] Last Admin: 09/21/17 03:10 Dose: Not Given Trimethoprim/Sulfamethoxazole (Septra Ds) 1 tab PO MoWeFr@0900 [facility] Last Admin: 09/21/17 03:09 Dose: Not Given Warfarin Sodium (Pharmacy To Dose - Warfarin) 1 dose .XX ASDIRECTED [facility] Warfarin Sodium (Coumadin) 7.5 mg PO ONETIME ONE Stop: 09/21/17 14:01 Discontinued Medications Fluticasone Propionate (Flonase) 0 gm NASBOTH BID [facility] - Exam Quality Assessment: Supplemental Oxygen General: Alert, Oriented Neck: Supple Lungs: Clear to Auscultation, Normal Respiratory Effort Cardiovascular: Regular Rate GI/Abdominal Exam: Normal Bowel Sounds, Soft, Non-Tender Extremities: No Pedal Edema Skin: Warm, Dry Neurological: No New Focal Deficit (moving both extremities well sensation is grossly intact.) Psy/Mental Status: Alert, Normal Affect, Normal Mood - Problem List & Annotations (1) Acute exacerbation of chronic low back pain SNOMED Code(s): 344854660 Code(s): M54.5 - LOW BACK PAIN; G89.29 - OTHER CHRONIC PAIN Status: Acute Current Visit: No - Problem List Review Problem List Initiated/Reviewed/Updated: Yes - My Orders Last 24 Hours: My Active Orders 09/20/17 13:46 Cyclobenzaprine [Flexeril] 5 mg PO TID PRN 09/20/17 13:47 Cooling Warming Measures [RC] ASDIRECTED K Pad [Heat Therapy] [OM.PC] Routine 09/20/17 13:48 oxyCODONE 5 mg PO Q6H PRN 09/20/17 13:58 Patient Status [ADT] Routine Oxygen Therapy [RC] PRN Up With Assistance [RC] ASDIRECTED Vital Signs [RC] 04,08,12,16,20,00 OT Evaluation and Treatment [CONS] Routine PT Evaluation and Treatment [CONS] Routine Ondansetron [Zofran ODT] 4 mg PO Q6H PRN Sodium Chloride 0.9% [Saline Flush] 10 ml FLUSH ASDIRECTED PRN Peripheral IV Insertion Adult [OM.PC] Routine Saline Lock Insert [OM.PC] Routine Resuscitation Status Routine 09/20/17 13:59 Antiembolic Hose [OM.PC] Per Unit Routine 09/20/17 14:00 Acetaminophen [Tylenol] 650 mg PO TID DULoxetine [Cymbalta] 30 mg PO DAILY Gabapentin [Neurontin] 100 mg PO TID Metoprolol Succinate [Toprol XL] 25 mg PO DAILY Sulfamethoxazole/Trimethoprim [Septra DS] 1 tab PO MoWeFr@0900 Warfar[place] Pharmacy to Dose [Pharmacy to Dose - Warfarin] 1 dose .XX ASDIRECTED 09/20/17 14:45 Lidocaine 5% [Lidoderm 5%] 700 mg TOP DAILY 09/20/17 14:46 Morphine 1 mg IVPUSH Q2H PRN 09/20/17 18:00 Albuterol/Ipratropium [DuoNeb 3.0-0.5 MG/3 ML] 3 ml NEB BIDRT Budesonide [Pulmicort] 0.25 mg NEB BIDRT 09/20/17 21:00 Fluticasone Propionate [Flonase] 0 gm NASBOTH BID Remove Patch 1 ea TRDERM BEDTIME traZODone 100 mg PO BEDTIME 09/20/17 Dinner Regular Diet [DIET] 09/21/17 07:48 RT Aerosol Therapy [RC] ASDIRECTED 09/21/17 08:00 Torsemide [Demadex] 10 mg PO BIDDIURETIC predniSONE 20 mg PO DAILY@0800 09/21/17 09:00 Multivitamins,Therapeutic [Thera] 1 each PO DAILY atorvaSTATin [Lipitor] 20 mg PO DAILY 09/21/17 13:13 Potassium Chloride [Klor-Con 10] 40 meq PO ONETIME ONE 09/21/17 14:00 Methylcellulose [Citrucel] 500 mg PO DAILY Warfarin [Coumadin] 7.5 mg PO ONETIME ONE 09/22/17 05:15 BASIC METABOLIC PANEL,BMP [CHEM] AM 09/22/17 14:21 INR,PT,PROTHROMBIN TIME [COAG] DAILY 09/23/17 14:21 INR,PT,PROTHROMBIN TIME [COAG] DAILY 09/24/17 14:21 INR,PT,PROTHROMBIN TIME [COAG] DAILY - Plan Plan:: 66-year-old with a history of thumb COPD with home oxygen, diabetes, paroxysmal atrial fibrillation on anticoagulation He has a history of back pain, vertebral fracture and vertebroplasty. #1 acute exacerbation of back pain Compared to prior studies compression fractures are seen. No lower extremity neurological deficit noted We'll treat with scheduled Tylenol, Lidoderm patch, Increased Neurontin Continue steroid Heat/cold pad As needed IV morphine for severe pain try to use oral breakthrough medication rather than IV Physical and occupational therapy evaluation #2 history of atrial fibrillation status post ablation We will continue rate control with the metoprolol chronic anticoagulation with Coumadin #3 COPD with chronic hypoxemic respiratory failure Supplemental oxygen as needed, continue DuoNeb, Pulmicort, steroid While on high-dose steroid continue Bactrim prophylactic dose mild leukocytosis likely relates to steroids #4 chronic lower extremity swelling Continue diuretics replace potassium for hypokalemia #5 DVT prophylaxis with full dose anticoagulation with Coumadin
[2017-09-21] MEDS ORDERED: Warfarin 2.5 MG Tab PO ONE (14:00)
[2017-09-22] MEDS: oxyCODONE 5 MG Tab PO PRN (03:05)
[2017-09-22 06:59] LABS: CHLORIDE,CL 99 mmol/L (101-111); SODIUM,NA 139 mmol/L (135-145)
[2017-09-22] MEDS: Budesonide 0.5 MG/2 ML Neb Susp NEB SCH (07:30)
[2017-09-22] MEDS: Albuterol/Ipratropium 3.0-0.5 MG/3 ML Neb Soln NEB SCH (07:30)
[2017-09-22] MEDS: Metoprolol Succinate 25 MG Tab.ER PO SCH (08:40)
[2017-09-22] MEDS: Torsemide 20 MG Tab PO SCH (08:40)
[2017-09-22] MEDS: Gabapentin 100 MG Cap PO SCH (08:40)
[2017-09-22] MEDS: Sulfamethoxazole/Trimethoprim 800-160 MG Tab PO SCH (08:41)
[2017-09-22] MEDS: Multivitamins,Therapeutic Tab PO SCH (08:41)
[2017-09-22] MEDS: predniSONE 20 MG Tab PO SCH (08:41)
[2017-09-22] MEDS: Acetaminophen 325 MG Tab PO SCH (08:41)
[2017-09-22] MEDS: DULoxetine 30 MG Cap PO SCH (08:41)
[2017-09-22] MEDS: atorvaSTATin 20 MG Tab PO SCH (08:41)
[2017-09-22] MEDS: Fluticasone Propionate Nasal Spray 16 GM Bottle NASBOTH SCH (08:42)
[2017-09-22] MEDS: Lidocaine 5% 700 MG Patch TOP SCH (08:42)
[2017-09-22] MEDS ORDERED: Potassium Chloride 10 MEQ Tab.ER PO ONE (10:01)
--- NOTE | 2017-09-22 10:12 | PCM.DCSUM1 ---
Discharge Summary - Hospital Course Free Text/Narrative:: 66-year-old with a history of thumb COPD with home oxygen, diabetes, paroxysmal atrial fibrillation on anticoagulation He has a history of back pain, vertebral fracture and vertebroplasty. Presented with worsening back pain. The pain got worse after gardening. #1 acute exacerbation of back pain Improved Compared to prior studies there for new compression fractures seen. No lower extremity neurological deficit noted Was treated with scheduled Tylenol, Lidoderm patch, Increased Neurontin Continue steroid Heat/cold pad Physical and occupational therapy evaluation will be continued as outpatient We will benefit from 4 wheeled walker with a seat. This will likely be needed lifelong. This is for back pain due to compression fractures, sciatica, obesity. #2 history of atrial fibrillation status post ablation We will continue rate control with the metoprolol chronic anticoagulation with Coumadin #3 COPD with chronic hypoxemic respiratory failure Supplemental oxygen as needed, continue DuoNeb, Pulmicort, steroid While on high-dose steroid continue Bactrim prophylactic dose mild leukocytosis likely relates to steroids #4 chronic lower extremity swelling Continue diuretics replace potassium for hypokalemia - Discharge Data Discharge Date: 09/22/17 Discharge Disposition: Home, Self-Care 01 Condition: Good - Discharge Diagnosis/Problem(s) (1) Acute exacerbation of chronic low back pain SNOMED Code(s): 122565801 ICD Code: M54.5 - LOW BACK PAIN; G89.29 - OTHER CHRONIC PAIN Status: Acute Current Visit: No - Patient Summary/Data Consults: Consultations 09/20/17 13:58 OT Evaluation and Treatment [CONS] Routine PT Evaluation and Treatment [CONS] Routine - Patient Instructions Diet: Weight Loss Diet Activity: As Tolerated - Discharge Plan Prescriptions/Med Rec: Cyclobenzaprine [Flexeril] 5 mg PO TID PRN #21 tablet PRN Reason: back pain Gabapentin [Neurontin] 100 mg PO TID #90 capsule Lidocaine 5% [Lidoderm 5%] 700 mg TOP DAILY #12 patch Potassium Chloride [Klor-Con M20] 20 meq PO DAILY #30 tab Home Medications: Home Meds traZODone 100 mg PO BEDTIME 05/02/13 [History] Metoprolol Succinate [Toprol Xl] 25 mg PO DAILY 07/13/16 [History] Multivitamin [Daily Multiple Vitamin] 1 tab PO DAILY 07/14/16 [History] Torsemide 10 mg PO BID 07/14/16 [History] atorvaSTATin [Lipitor] 20 mg PO DAILY 07/14/16 [History] Albuterol/Ipratropium [DuoNeb 3.0-0.5 MG/3 ML] 3 ml NEB BID 01/31/17 [History] Budesonide [Pulmicort] 0.25 mg NEB BIDRT 01/31/17 [History] Sulfamethoxazole/Trimethoprim [Bactrim Ds Tablet] 1 each PO .TRIWEEKLY 01/31/17 [History] predniSONE 20 mg PO DAILY 01/31/17 [History] Acetaminophen/oxyCODONE [Percocet 325-5 MG] 1 tab PO Q6H PRN 09/20/17 [History] DULoxetine [Cymbalta] 30 mg PO DAILY 09/20/17 [History] Fluticasone Propionate [Flonase] 16 gm NS BID 09/20/17 [History] Warfarin [Coumadin] 5 mg PO .SA,LEROY 09/20/17 [History] Warfarin [Coumadin] 7.5 mg PO .M,T,W,TH,F 09/20/17 [History] Cyclobenzaprine [Flexeril] 5 mg PO TID PRN #21 tablet 09/22/17 [Rx] Gabapentin [Neurontin] 100 mg PO TID #90 capsule 09/22/17 [Rx] Lidocaine 5% [Lidoderm 5%] 700 mg TOP DAILY #12 patch 09/22/17 [Rx] Potassium Chloride [Klor-Con M20] 20 meq PO DAILY #30 tab 09/22/17 [Rx] Referrals: Montse Durbin PA [Primary Care Provider] - (in 2-3 days) - Discharge Summary/Plan Comment DC Time >30 min.: No - General Info Date of Service: 09/22/17 Subjective Update: the pain has much improved . Has been able to do ADLs. No fever, chills, chest pain, abdominal pain. Functional Status: Reports: Tolerating Diet - Review of Systems General: Denies: Fever Pulmonary: Reports: Shortness of Breath (Chronic) Cardiovascular: Denies: Chest Pain Gastrointestinal: Denies: Abdominal Pain Neurological: Denies: Confusion - Patient Data Vitals - Most Recent: Last Vital Signs Temp 36.1 C 05/09/18 08:05 Pulse 77 09/22/17 08:40 Resp 20 09/22/17 08:05 BP 133/68 09/22/17 08:40 Pulse Ox 97 09/22/17 08:05 I&O - Last 24 hours: Intake & Output 09/21/17 09/22/17 09/22/17 22:59 06:59 14:59 Intake Total 1600 100 Output Total 550 250 200 Balance 1050 -150 -200 Lab Results - Last 24 hrs: Laboratory Results - last 24 hr 09/21/17 09/21/17 09/22/17 Range/Units 05:57 05:57 06:24 WBC 10.2 H (5.0-10.0) 10^3/uL RBC 4.18 L (4.6-6.2) 10^6/uL Hgb 13.4 L D (14.0-18.0) g/dL Hct 40.6 (40.0-54.0) % MCV 97.1 (80-100) fL MCH 32.1 (27.0-34.0) pg MCHC 33.0 (33.0-35.0) g/dL Plt Count 180 (150-450) 10^3/uL Neut % (Auto) 72.0 (42.2-75.2) % Lymph % (Auto) 18.9 L (20.5-50.1) % [place] % (Auto) 5.8 (2-8) % Eos % (Auto) 3.0 (1.0-3.0) % Baso % (Auto) 0.3 (0.0-1.0) % Add Manual Diff Yes Neutrophils % (Manual) 65 (42-75) % Lymphocytes % (Manual) 31 (20-50) % Monocytes % (Manual) 3 (2-8) % Eosinophils % (Manual) 1 (1-3) % PT 13.8 H (9.0-12.0) SEC INR 1.4 H (0.9-1.2) Sodium 138 (135-145) mmol/L Potassium 3.3 L (3.6-5.0) mmol/L Chloride 96 L (101-111) mmol/L Carbon Dioxide 35.0 H (21.0-31.0) mmol/L Anion Gap 10.3 BUN 20 H (7-18) mg/dL Creatinine 0.9 (0.6-1.3) mg/dL Est Cr Clr Drug Dosing TNP Estimated GFR (MDRD) > 60 Glucose 98 (74-105) mg/dL Calcium 9.2 (8.4-10.2) mg/dl 09/22/17 Range/Units 06:24 WBC (5.0-10.0) 10^3/uL RBC (4.6-6.2) 10^6/uL Hgb (14.0-18.0) g/dL Hct (40.0-54.0) % MCV (80-100) fL MCH (27.0-34.0) pg MCHC (33.0-35.0) g/dL Plt Count (150-450) 10^3/uL Neut % (Auto) (42.2-75.2) % Lymph % (Auto) (20.5-50.1) % [place] % (Auto) (2-8) % Eos % (Auto) (1.0-3.0) % Baso % (Auto) (0.0-1.0) % Add Manual Diff Neutrophils % (Manual) (42-75) % Lymphocytes % (Manual) (20-50) % Monocytes % (Manual) (2-8) % Eosinophils % (Manual) (1-3) % PT (9.0-12.0) SEC INR (0.9-1.2) Sodium 139 (135-145) mmol/L Potassium 3.4 L (3.6-5.0) mmol/L Chloride 99 L (101-111) mmol/L Carbon Dioxide 32.0 H (21.0-31.0) mmol/L Anion Gap 11.4 BUN 21 H (7-18) mg/dL Creatinine 0.9 (0.6-1.3) mg/dL Est Cr Clr Drug Dosing TNP Estimated GFR (MDRD) > 60 Glucose 133 H (74-105) mg/dL Calcium 9.2 (8.4-10.2) mg/dl Med Orders - Current: Current Medications Acetaminophen (Tylenol) 650 mg PO TID [facility] Last Admin: 09/22/17 08:41 Dose: 650 mg Albuterol/Ipratropium (Duoneb 3.0-0.5 Mg/3 Ml) 3 ml NEB BIDRT [facility] Last Admin: 09/22/17 07:30 Dose: 3 ml Atorvastatin Calcium (Lipitor) 20 mg PO DAILY [facility] Last Admin: 09/22/17 08:41 Dose: 20 mg Budesonide (Pulmicort) 0.25 mg NEB BIDRT [facility] Last Admin: 09/22/17 07:30 Dose: 0.5 mg Cyclobenzaprine HCl (Flexeril) 5 mg PO TID PRN PRN Reason: back pain Last Admin: 09/21/17 17:43 Dose: 5 mg Duloxetine HCl (Cymbalta) 30 mg PO DAILY [facility] Last Admin: 09/22/17 08:41 Dose: 30 mg Fluticasone Propionate (Flonase) 0 gm NASBOTH BID [facility] Last Admin: 09/22/17 08:42 Dose: 1 spray Gabapentin (Neurontin) 100 mg PO TID [facility] Last Admin: 09/22/17 08:40 Dose: 100 mg Lidocaine (Lidoderm 5%) 700 mg TOP DAILY [facility] Last Admin: 09/22/17 08:42 Dose: 700 mg Methylcellulose (Citrucel) 500 mg PO DAILY [facility] Last Admin: 09/22/17 08:41 Dose: 500 mg Metoprolol Succinate (Toprol Xl) 25 mg PO DAILY [facility] Last Admin: 09/22/17 08:40 Dose: 25 mg Miscellaneous Information (Remove Patch) 1 ea TRDERM BEDTIME [facility] Last Admin: 09/21/17 21:56 Dose: 1 ea Morphine Sulfate (Morphine) 1 mg IVPUSH Q2H PRN PRN Reason: severe pain Last Admin: 09/21/17 05:17 Dose: 1 mg Multivitamins (Thera) 1 each PO DAILY [facility] Last Admin: 09/22/17 08:41 Dose: 1 each Ondansetron HCl (Zofran Odt) 4 mg PO Q6H PRN PRN Reason: nausea, able to take PO Oxycodone HCl (Oxycodone) 5 mg PO Q6H PRN PRN Reason: Pain Last Admin: 09/22/17 03:05 Dose: 5 mg Prednisone (Prednisone) 20 mg PO DAILY@0800 [facility] Last Admin: 09/22/17 08:41 Dose: 20 mg Sodium Chloride (Saline Flush) 10 ml FLUSH ASDIRECTED PRN PRN Reason: Keep Vein Open Last Admin: 09/21/17 21:57 Dose: 10 ml Torsemide (Demadex) 10 mg PO BIDDIURETIC [facility] Last Admin: 09/22/17 08:40 Dose: 10 mg Trazodone HCl (Trazodone) 100 mg PO BEDTIME [facility] Last Admin: 09/21/17 21:52 Dose: 100 mg Trimethoprim/Sulfamethoxazole (Septra Ds) 1 tab PO MoWeFr@0900 [facility] Last Admin: 09/22/17 08:41 Dose: 1 tab Warfarin Sodium (Pharmacy To Dose - Warfarin) 1 dose .XX ASDIRECTED [facility] Discontinued Medications Fluticasone Propionate (Flonase) 0 gm NASBOTH BID [facility] Potassium Chloride (Klor-Con 10) 40 meq PO ONETIME ONE Stop: 09/21/17 13:14 Last Admin: 09/21/17 14:42 Dose: 40 meq Potassium Chloride (Klor-Con 10) 40 meq PO ONETIME ONE Stop: 09/22/17 10:02 Warfarin Sodium (Coumadin) 7.5 mg PO ONETIME ONE Stop: 09/21/17 14:01 Last Admin: 09/21/17 13:46 Dose: 7.5 mg - Exam General: Reports: Alert, Oriented Neck: Reports: Supple Lungs: Reports: Normal Respiratory Effort, Decreased Breath Sounds Cardiovascular: Reports: Regular Rate, Regular Rhythm GI/Abdominal Exam: Normal Bowel Sounds, Soft, Non-Tender, Other ([place]) Extremities: Pedal Edema (Trace bilateral) Skin: Reports: Warm, Dry Neurological: Reports: No New Focal Deficit, Sensation Intact, Other (Moving both lower extremities well, sensation intact in bilateral lower extremities) Psy/Mental Status: Reports: Alert, Normal Affect, Normal Mood
[2017-09-22 12:14] VITALS: BP 111/77
[2017-09-22] MEDS ORDERED: Warfarin 5 MG Tab PO ONE (14:00)
== END 2017-09-22 13:23 | disposition home or self-care (01) ==
LOC: DL.MS 12:38 → UNDOADMOB 12:38 → DL.MS 13:58
PROVIDERS: ADMIT Internal Medicine; ATTEND Internal Medicine
DX: M48.50XA Collapsed vertebra, not elsewhere classified, site unspecified, initial encounter for fracture (principal); G89.29 Other chronic pain; M54.5 Low back pain; J44.9 Chronic obstructive pulmonary disease, unspecified; I48.0 Paroxysmal atrial fibrillation; M54.30 Sciatica, unspecified side; E66.9 Obesity, unspecified; J96.11 Chronic respiratory failure with hypoxia; E78.00 Pure hypercholesterolemia, unspecified; Z95.0 Presence of cardiac pacemaker; G47.30 Sleep apnea, unspecified; E11.42 Type 2 diabetes mellitus with diabetic polyneuropathy; Z68.30 Body mass index [BMI] 30.0-30.9, adult; Z99.81 Dependence on supplemental oxygen; Z79.01 Long term (current) use of anticoagulants; Z79.899 Other long term (current) drug therapy; Z88.8 Allergy status to other drugs, medicaments and biological substances; Z88.1 Allergy status to other antibiotic agents; Z87.891 Personal history of nicotine dependence
CPT/HCPCS: 36415; 80048; 85025; 85610; 94640; 96374; 97162; 97165; A9270; G0378; G0379; J2270; J7050

== ENCOUNTER 2021-10-15 06:53 | Day surgery (SDC) | payer MEDICARE, BC ==
[2021-10-15] MEDS ORDERED: Sodium Chloride 0.9% 10 ML Syringe IV ONE (06:54)
[2021-10-15] MEDS ORDERED: Dexamethasone 4 MG/ML SDV IV ONE (06:54)
[2021-10-15] MEDS ORDERED: Midazolam 1 MG/ML 2 ML SDV IV ONE (06:54)
[2021-10-15] MEDS ORDERED: Cataract Ophth Solution EYELF ONE (07:00)
[2021-10-15] MEDS ORDERED: Sodium Chloride 0.9% 10 ML Syringe FLUSH PRN (07:00)
[2021-10-15] MEDS ORDERED: Acetaminophen/Codeine 300-30 MG Tab PO PRN (07:00)
[2021-10-15] MEDS ORDERED: Phenylephrine 10% Ophth Soln 5 ML Bot EYELF ONE (07:00)
[2021-10-15] MEDS ORDERED: Moxifloxacin 0.5% Ophth Soln 3 ML Bottle EYELF ONE (07:00)
[2021-10-15] MEDS ORDERED: Acetaminophen 325 MG Tab PO PRN (07:00)
[2021-10-15] MEDS ORDERED: Timolol Maleate 0.5% Ophth Soln 5 ML Bottle EYELF ONE (07:00)
[2021-10-15] MEDS ORDERED: Proparacaine 0.5% Ophth Soln 15 ML Bottle EYELF ONE (07:00)
[2021-10-15] MEDS ORDERED: Tropicamide 1% Ophth Soln 15 ML Bottle EYELF ONE (07:00)
[2021-10-15] MEDS ORDERED: Ondansetron 4 MG/2 ML SDV IVPUSH PRN (07:00)
[2021-10-15] MEDS ORDERED: Povidone-Iodine 5% Sterile Ophth Soln 30 ML Bottle EYELF ONE ×2 (07:00→08:16)
[2021-10-15] MEDS ORDERED: Tetracaine HCl/PF 0.5% 4 ML Bottle EYELF ONE (08:14)
[2021-10-15] MEDS ORDERED: Lidocaine 1% 30 ML SDV ONE (08:15)
[2021-10-15] MEDS ORDERED: Apraclonidine 0.5% Ophth Soln 5 ML Bot EYELF ONE (08:16)
[2021-10-15] MEDS ORDERED: Diclofenac Sodium 0.1% Ophth Soln 5 ML Bottle EYELF ONE (08:16)
[2021-10-15] MEDS ORDERED: Balanced Salt Solution Ophth Irrig 500 ML Bottle IOCULAR ONE (08:17)
[2021-10-15] MEDS ORDERED: Dexamethasone/Tobramycin 0.1-0.3% Ophth Oint 3.5 GM Tube EYELF ONE (08:17)
[2021-10-15] MEDS ORDERED: Chondroitin Sulfate/Hyaluronate Sodium Ophth Inj 0.5 ML Syringe IOCULAR ONE (08:18)
[2021-10-15] MEDS ORDERED: Vancomycin 500 MG SDV EYELF ONE (08:18)
[2021-10-15 09:44] VITALS: BP 120/78; PULSE 61
== END 2021-10-15 09:28 | disposition home or self-care (01) ==
LOC: DL.SDS 06:53
PROVIDERS: ATTEND Ophthalmology
DX: H25.812 Combined forms of age-related cataract, left eye (principal); F41.8 Other specified anxiety disorders; E66.01 Morbid (severe) obesity due to excess calories; E11.9 Type 2 diabetes mellitus without complications; I48.0 Paroxysmal atrial fibrillation; E78.5 Hyperlipidemia, unspecified; M53.3 Sacrococcygeal disorders, not elsewhere classified; G89.29 Other chronic pain; Z98.890 Other specified postprocedural states; Z79.899 Other long term (current) drug therapy; Z68.41 Body mass index [BMI] 40.0-44.9, adult
CPT/HCPCS: 00142; A9270-GY; J1100; J2250; J3370; J3490; V2632

== ENCOUNTER → 2021-11-12 | Day surgery (SDC) | payer MEDICARE, BC ==
[~2021-11-12] MED LIST: Acetaminophen 325 MG Tab PO PRN; Acetaminophen/Codeine 300-30 MG Tab PO PRN; Apraclonidine 0.5% Ophth Soln 5 ML Bot EYERT ONE; Balanced Salt Solution Ophth Irrig 500 ML Bottle EYERT ONE; Cataract Ophth Solution EYERT ONE; Chondroitin Sulfate/Hyaluronate Sodium Ophth Inj 0.5 ML Syringe IOCULAR ONE; Dexamethasone 4 MG/ML SDV IV ONE; Dexamethasone/Tobramycin 0.1-0.3% Ophth Oint 3.5 GM Tube EYERT ONE; Diclofenac Sodium 0.1% Ophth Soln 5 ML Bottle EYERT ONE; Lidocaine 1% 30 ML SDV ONE; Midazolam 1 MG/ML 2 ML SDV IV ONE; Moxifloxacin 0.5% Ophth Soln 3 ML Bottle EYERT ONE; Ondansetron 4 MG/2 ML SDV IVPUSH PRN; Phenylephrine 10% Ophth Soln 5 ML Bot EYERT ONE; Povidone-Iodine 5% Sterile Ophth Soln 30 ML Bottle EYERT ONE; Proparacaine 0.5% Ophth Soln 15 ML Bottle EYERT ONE; Sodium Chloride 0.9% 10 ML Syringe FLUSH PRN; Sodium Chloride 0.9% 10 ML Syringe IV ONE; Tetracaine HCl/PF 0.5% 4 ML Bottle EYERT ONE; Timolol Maleate 0.5% Ophth Soln 5 ML Bottle EYERT ONE; Tobramycin 0.3% Ophth Drops 5 ML Bottle EYERT SCH; Tropicamide 1% Ophth Soln 15 ML Bottle EYERT ONE; Vancomycin 500 MG SDV EYERT ONE
[2021-11-12 11:54] VITALS: BP 125/71; PULSE 59
== END ==
LOC: DL.SDS 06:47
PROVIDERS: ATTEND Ophthalmology
DX: H25.811 Combined forms of age-related cataract, right eye (principal); I48.92 Unspecified atrial flutter; G89.29 Other chronic pain; F41.8 Other specified anxiety disorders; G47.30 Sleep apnea, unspecified; M53.3 Sacrococcygeal disorders, not elsewhere classified; E11.9 Type 2 diabetes mellitus without complications; E78.5 Hyperlipidemia, unspecified; I48.0 Paroxysmal atrial fibrillation; E66.9 Obesity, unspecified; I10 Essential (primary) hypertension; Z98.890 Other specified postprocedural states; Z87.891 Personal history of nicotine dependence; Z79.899 Other long term (current) drug therapy; Z88.8 Allergy status to other drugs, medicaments and biological substances; Z88.1 Allergy status to other antibiotic agents; Z68.41 Body mass index [BMI] 40.0-44.9, adult; Z95.0 Presence of cardiac pacemaker
CPT/HCPCS: 00142; 66984; A9270; J1100; J2250; J3370; J3490; V2632

== ENCOUNTER 2023-06-22 11:12 | Emergency (ER) | payer MEDICARE, BC ==
[2023-06-22] MEDS: Iopamidol 612 MG/ML 100 ML Bottle IVPUSH ONE (11:38)
[2023-06-22] MEDS ORDERED: Sodium Chloride 0.9% 1,000 ML IV ONE ×2 (11:55→13:04)
[2023-06-22 12:08] LABS: BASOPHILS PERCENT AUTO 0.1 % (0.0-1.0); HEMATOCRIT 43.9 % (40.0-54.0); HEMOGLOBIN 14.6 g/dL (14.0-18.0); LYMPHOCYTES PERCENT AUTO 2.5 % (20.5-50.1); MEAN CORPUSCULAR HEMOGLOBIN 31.2 pg (27.0-34.0); MEAN CORPUSCULAR HGB CONC 33.3 g/dL (33.0-35.0); MEAN CORPUSCULAR VOLUME 93.8 fL (80-100); MONOCYTES PERCENT AUTO 7.8 % (2-8); NEUTROPHILS PERCENT AUTO 89.6 % (42.2-75.2); PLATELET COUNT,PLT 162 10^3/uL (150-450); RED BLOOD CELL COUNT 4.68 10^6/uL (4.6-6.2); WHITE BLOOD CELL COUNT,WBC 9.7 10^3/uL (5.0-10.0)
[2023-06-22 12:18] LABS: APPEARANCE,URINE CLOUDY (CLEAR); BILIRUBIN,URINE NEGATIVE (NEGATIVE); COLOR,URINE AMBER (YELLOW); GLUCOSE,URINE NEGATIVE (NEGATIVE); KETONES,URINE NEGATIVE (NEGATIVE); LEUKOCYTE ESTERASE,URINE NEGATIVE (NEGATIVE); NITRITE,URINE NEGATIVE (NEGATIVE); OCCULT BLOOD,URINE LARGE (NEGATIVE); PH,URINE 5.5 (5.0-9.0); PROTEIN,URINE >=300 (NEGATIVE); UROBILINOGEN,URINE 0.2 mg/dL (0.2-1.0)
[2023-06-22 12:19] LABS: INR 2.2 (0.9-1.2); PROTHROMBIN TIME 21.4 SEC (9.0-12.0); PTT,PARTIAL THROMBOPLSTIN TIME 31.2 SEC (22.0-34.0)
[2023-06-22 12:20] LABS: AMPHETAMINES,URINE NEGATIVE (NEGATIVE); BARBITURATES,URINE NEGATIVE (NEGATIVE); BENZODIAZEPINE,URINE NEGATIVE (NEGATIVE); MDMA (ECSTASY), URINE NEGATIVE (NEGATIVE); METHADONE,URINE NEGATIVE (NEGATIVE); METHAMPHETAMINES,URINE NEGATIVE (NEGATIVE); OPIATES,URINE NEGATIVE (NEGATIVE); OXYCODONE,URINE NEGATIVE (NEGATIVE); PHENCYCLIDINE,URINE NEGATIVE (NEGATIVE); TCA,URINE NEGATIVE (NEGATIVE)
[2023-06-22 12:25] LABS: LACTIC ACID 2.8 mmol/L (0.4-2.0)
[2023-06-22 12:31] LABS: WBC,URINE 0-5 /HPF (0-5/HPF)
[2023-06-22 12:31] LABS: ALANINE AMINOTRANSFERASE,ALT 46 U/L (16-63); ALBUMIN 2.8 g/dL (3.4-5.0); ALKALINE PHOSPHATASE 71 U/L (46-116); ANION GAP 12.7 mEq/L (7-13); ASPARTATE AMNIOTRANSFERASE,AST 117 U/L (15-37); BILIRUBIN TOTAL 0.8 mg/dL (0.2-1.0); BLOOD UREA NITROGEN,BUN 19 mg/dL (7-18); BUN/CREATININE RATIO 12.4 (No establ ref range); C-REACTIVE PROTEIN 6.96 ng/dL (<=0.50); CALCIUM 8.3 mg/dL (8.5-10.1); CARBON DIOXIDE,CO2 27 mmol/L (21-32); CHLORIDE,CL 94 mmol/L (98-107); CREATININE 1.53 mg/dL (0.70-1.30); GLUCOSE RANDOM 111 mg/dL (70-99); POTASSIUM,K 3.7 mmol/L (3.5-5.1); PROTEIN TOTAL,TP 7.3 g/dL (6.4-8.2); SODIUM,NA 130 mmol/L (136-145)
[2023-06-22 12:32] LABS: AMORPHOUS SEDIMENT,URINE MANY /HPF (NOT SEEN); BACTERIA,URINE RARE /HPF (0-FEW/HPF); EPITHELIAL CELLS,URINE FEW /HPF (NOT SEEN); GRANULAR CASTS,URINE FEW; MUCUS,URINE MODERATE /LPF (NOT SEEN); RBC,URINE 30-40 /HPF (0-5)
[2023-06-22 12:33] LABS: A/G RATIO 0.62; CREATINE KINASE,CK 4525 U/L (39-308); ESTIMATED GFR 47 mL/min (>=60)
[2023-06-22] MEDS ORDERED: Diphtheria,Pertussis(Acell),Tetanus Vaccine 0.5 ML Syringe IM ONE (13:10)
[2023-06-22] MEDS ORDERED: Acetaminophen 500 MG Tab PO ONE (13:39)
== END 2023-06-22 13:49 ==
LOC: DL.ED 11:12
DX: T79.6XXA Traumatic ischemia of muscle, initial encounter (principal); S60.221A Contusion of right hand, initial encounter; S60.222A Contusion of left hand, initial encounter; S05.12XA Contusion of eyeball and orbital tissues, left eye, initial encounter; I21.4 Non-ST elevation (NSTEMI) myocardial infarction; I10 Essential (primary) hypertension; E78.00 Pure hypercholesterolemia, unspecified; I48.91 Unspecified atrial fibrillation; Z95.0 Presence of cardiac pacemaker; E66.9 Obesity, unspecified; Z79.899 Other long term (current) drug therapy; Z88.1 Allergy status to other antibiotic agents; Z79.01 Long term (current) use of anticoagulants; W19.XXXA Unspecified fall, initial encounter
CPT/HCPCS: 36415; 70450; 70486; 71260; 72125; 73080-LT; 74177; 80053; 80305-QW; 81001; 82550; 83605; 83735; 84484; 85025; 85610; 85730; 86140; 87040; 93010; 96360; 99285; 99285-25; Q9967

== ENCOUNTER 2023-06-30 13:29 | Inpatient (IN) | payer MEDICARE, BC ==
[2023-07-05] MEDS ORDERED: Melatonin 3 MG Tab PO PRN (15:40)
[2023-07-05] MEDS ORDERED: Ondansetron 4 MG/2 ML SDV IVPUSH PRN (15:48)
[2023-07-05 16:27] LABS: INR 1.8 (0.9-1.2); PROTHROMBIN TIME 17.8 SEC (9.0-12.0)
[2023-07-05] MEDS: Budesonide 0.5 MG/2 ML Neb Susp INH SCH (18:39)
[2023-07-05] MEDS: Albuterol/Ipratropium 3.0-0.5 MG/3 ML Neb Soln INH SCH (18:39)
[2023-07-05] MEDS: atorvaSTATin 20 MG Tab PO SCH (21:06)
[2023-07-05] MEDS: Lactulose Soln 10 GM/15 ML 30 ML UD Cup PO SCH (21:06)
[2023-07-05] MEDS: traZODone 50 MG Tab PO SCH (21:06)
[2023-07-05] MEDS: Fluticasone NASAL Spray 16 GM Bottle NASBOTH SCH (21:07)
[2023-07-05] MEDS: Acetaminophen 500 MG Tab PO PRN (21:14)
[2023-07-06] MEDS: Pantoprazole 40 MG Tab.CR PO SCH (05:55)
[2023-07-06 06:29] LABS: BASOPHILS PERCENT AUTO 0.3 % (0.0-1.0); EOSINOPHILS PERCENT AUTO 4.7 % (1.0-3.0); HEMATOCRIT 31.5 % (40.0-54.0); HEMOGLOBIN 10.1 g/dL (14.0-18.0); LYMPHOCYTES PERCENT AUTO 20.6 % (20.5-50.1); MEAN CORPUSCULAR HEMOGLOBIN 31.8 pg (27.0-34.0); MEAN CORPUSCULAR HGB CONC 32.1 g/dL (33.0-35.0); MEAN CORPUSCULAR VOLUME 99.1 fL (80-100); MONOCYTES PERCENT AUTO 12.1 % (2-8); NEUTROPHILS PERCENT AUTO 62.3 % (42.2-75.2); PLATELET COUNT,PLT 176 10^3/uL (150-450); RED BLOOD CELL COUNT 3.18 10^6/uL (4.6-6.2); WHITE BLOOD CELL COUNT,WBC 6.2 10^3/uL (5.0-10.0)
[2023-07-06 06:46] LABS: ANION GAP 8.7 mEq/L (7-13); CALCIUM 8.6 mg/dL (8.5-10.1); CREATININE 1.02 mg/dL (0.70-1.30); EST CRCL DRUG DOSING (CG) 71.81 mL/min; POTASSIUM,K 3.7 mmol/L (3.5-5.1)
[2023-07-06 06:50] LABS: PROTHROMBIN TIME 19.4 SEC (9.0-12.0)
[2023-07-06] MEDS: Aspirin 81 MG Tab.EC PO SCH (09:59)
[2023-07-06] MEDS: DULoxetine 30 MG Cap PO SCH (09:59)
[2023-07-06] MEDS: Torsemide 20 MG Tab PO SCH (10:00)
[2023-07-06] MEDS: Escitalopram 10 MG Tab PO SCH (10:00)
[2023-07-06] MEDS: Potassium Chloride 10 MEQ Tab.ER PO SCH (10:00)
[2023-07-06] MEDS: Ferrous Sulfate 325 MG Tab PO SCH (10:00)
[2023-07-06] MEDS: Metoprolol Succinate 25 MG Tab.ER PO SCH (10:00)
[2023-07-06] MEDS: Multivitamin Tab PO SCH (10:01)
[2023-07-06] MEDS: Warfarin 5 MG Tab PO SCH ×2 (15:25→15:26)
[2023-07-06] MEDS: Benzocaine/Cetylpyridinium/Menthol Lozenge MUCMEM PRN (15:26)
[2023-07-07 06:48] LABS: INR 2.1 (0.9-1.2); PROTHROMBIN TIME 20.7 SEC (9.0-12.0)
[2023-07-07] MEDS: Potassium Chloride 10 MEQ Tab.ER PO ONE (09:38)
[2023-07-08 07:04] LABS: INR 2.5 (0.9-1.2); PROTHROMBIN TIME 24.4 SEC (9.0-12.0)
[2023-07-08 08:28] LABS: BASOPHILS PERCENT AUTO 0.2 % (0.0-1.0); HEMATOCRIT 32.1 % (40.0-54.0); HEMOGLOBIN 10.3 g/dL (14.0-18.0); LYMPHOCYTES PERCENT AUTO 10.8 % (20.5-50.1); MEAN CORPUSCULAR HEMOGLOBIN 32.1 pg (27.0-34.0); MEAN CORPUSCULAR HGB CONC 32.1 g/dL (33.0-35.0); MONOCYTES PERCENT AUTO 8.5 % (2-8); NEUTROPHILS PERCENT AUTO 77.5 % (42.2-75.2); PLATELET COUNT,PLT 164 10^3/uL (150-450); RED BLOOD CELL COUNT 3.21 10^6/uL (4.6-6.2); WHITE BLOOD CELL COUNT,WBC 9.5 10^3/uL (5.0-10.0)
[2023-07-09 06:31] LABS: ANION GAP 9.8 mEq/L (7-13); CALCIUM 8.3 mg/dL (8.5-10.1); CREATININE 1.02 mg/dL (0.70-1.30); EST CRCL DRUG DOSING (CG) 71.81 mL/min; INR 2.8 (0.9-1.2); POTASSIUM,K 3.8 mmol/L (3.5-5.1); PROTHROMBIN TIME 27.1 SEC (9.0-12.0)
[2023-07-09] MEDS: Polyethylene Glycol 3350 Powder 17 GM Packet PO PRN (13:53)
[2023-07-10 06:49] LABS: PROTHROMBIN TIME 28.6 SEC (9.0-12.0)
[2023-07-10] MEDS: Warfarin 5 MG Tab PO ONE (13:34)
[2023-07-11 07:05] LABS: INR 2.6 (0.9-1.2); PROTHROMBIN TIME 25.3 SEC (9.0-12.0)
[2023-07-11] MEDS: Warfarin 5 MG Tab PO ONE (14:19)
[2023-07-12 06:32] LABS: BASOPHILS PERCENT AUTO 0.3 % (0.0-1.0); EOSINOPHILS PERCENT AUTO 9.2 % (1.0-3.0); HEMATOCRIT 33.3 % (40.0-54.0); HEMOGLOBIN 10.6 g/dL (14.0-18.0); MEAN CORPUSCULAR HEMOGLOBIN 31.9 pg (27.0-34.0); MEAN CORPUSCULAR HGB CONC 31.8 g/dL (33.0-35.0); MEAN CORPUSCULAR VOLUME 100.3 fL (80-100); MONOCYTES PERCENT AUTO 9.5 % (2-8); PLATELET COUNT,PLT 153 10^3/uL (150-450); RED BLOOD CELL COUNT 3.32 10^6/uL (4.6-6.2); WHITE BLOOD CELL COUNT,WBC 6.1 10^3/uL (5.0-10.0)
[2023-07-12 06:48] LABS: ANION GAP 7.9 mEq/L (7-13); CALCIUM 8.8 mg/dL (8.5-10.1); CREATININE 0.91 mg/dL (0.70-1.30); EST CRCL DRUG DOSING (CG) 80.49 mL/min; POTASSIUM,K 3.9 mmol/L (3.5-5.1)
[2023-07-12 06:53] LABS: INR 2.3 (0.9-1.2); PROTHROMBIN TIME 22.2 SEC (9.0-12.0)
[2023-07-12] MEDS ORDERED: predniSONE 20 MG Tab PO SCH (11:15)
[2023-07-12] MEDS: predniSONE 20 MG Tab PO SCH (11:21)
[2023-07-12] MEDS: Warfarin 5 MG Tab PO ONE (15:06)
[2023-07-12] MEDS: Torsemide 20 MG Tab PO SCH (15:06)
[2023-07-12] MEDS: Amoxicillin/Clavulanate K 875-125 MG Tab PO SCH (21:37)
[2023-07-13] MEDS: Warfarin 5 MG Tab PO ONE (13:59)
[2023-07-14 13:07] LABS: INR 1.9 (0.9-1.2); PROTHROMBIN TIME 18.5 SEC (9.0-12.0)
[2023-07-14] MEDS: Albuterol/Ipratropium 3.0-0.5 MG/3 ML Neb Soln ONE (13:41)
[2023-07-14] MEDS: Warfarin 2 MG Tab PO ONE (13:59)
[2023-07-15 07:58] VITALS: BP 117/57; PULSE 66
== END 2023-07-15 08:54 | disposition home or self-care (01) | DRG 947 ==
LOC: DL.MS 07-05 14:57 → UNDOADMIN 07-05 14:57 → DL.MS 07-05 15:48
PROVIDERS: ADMIT Internal Medicine; ATTEND Internal Medicine
DX: R53.1 Weakness (principal); I21.4 Non-ST elevation (NSTEMI) myocardial infarction; M62.82 Rhabdomyolysis; Z66 Do not resuscitate; G47.33 Obstructive sleep apnea (adult) (pediatric); I48.91 Unspecified atrial fibrillation; E78.00 Pure hypercholesterolemia, unspecified; I10 Essential (primary) hypertension; G62.9 Polyneuropathy, unspecified; F41.9 Anxiety disorder, unspecified; F32.A Depression, unspecified; E66.9 Obesity, unspecified; R29.6 Repeated falls; R53.81 Other malaise; G89.29 Other chronic pain; M54.9 Dorsalgia, unspecified; J84.112 Idiopathic pulmonary fibrosis; S30.1XXD Contusion of abdominal wall, subsequent encounter; S20.219D Contusion of unspecified front wall of thorax, subsequent encounter; Z99.81 Dependence on supplemental oxygen; Z79.01 Long term (current) use of anticoagulants; Z88.1 Allergy status to other antibiotic agents; Z88.8 Allergy status to other drugs, medicaments and biological substances; Z79.82 Long term (current) use of aspirin; Z79.899 Other long term (current) drug therapy; Z95.0 Presence of cardiac pacemaker; Z87.81 Personal history of (healed) traumatic fracture; Z68.37 Body mass index [BMI] 37.0-37.9, adult; Z98.52 Vasectomy status; Z98.49 Cataract extraction status, unspecified eye; Z98.890 Other specified postprocedural states; Z87.891 Personal history of nicotine dependence; W19.XXXD Unspecified fall, subsequent encounter
CPT/HCPCS: 36415; 71046; 80048; 85025; 85610; 94640; 94760; 97110-GO; 97110-GP; 97116-GP; 97161-GP; 97165-GO; 97530-GO; 97530-GP; 97535-GO; 99306; 99309; 99316; A9270-GY; J3490; J7512; J7620-GY

== ENCOUNTER 2023-11-03 05:01 | Inpatient (IN) | payer MEDICARE, BC ==
[2023-11-03] MEDS: Sodium Chloride 0.9% 10 ML Syringe FLUSH PRN ×2 (05:27→06:35)
[2023-11-03] MEDS: Albuterol/Ipratropium 3.0-0.5 MG/3 ML Neb Soln NEB ONE (05:45)
[2023-11-03] MEDS: Ibuprofen 400 MG Tab PO ONE (06:12)
[2023-11-03 06:19] LABS: HEMATOCRIT 43.8 % (40.0-54.0); HEMOGLOBIN 14.4 g/dL (14.0-18.0); MEAN CORPUSCULAR VOLUME 93.8 fL (80-100); RED BLOOD CELL COUNT 4.67 10^6/uL (4.6-6.2)
[2023-11-03 06:20] LABS: BASOPHILS PERCENT AUTO 0.1 % (0.0-1.0); LYMPHOCYTES PERCENT AUTO 3.3 % (20.5-50.1); MEAN CORPUSCULAR HEMOGLOBIN 30.8 pg (27.0-34.0); MEAN CORPUSCULAR HGB CONC 32.9 g/dL (33.0-35.0); MONOCYTES PERCENT AUTO 3.8 % (2-8); NEUTROPHILS PERCENT AUTO 92.8 % (42.2-75.2); PLATELET COUNT,PLT 206 10^3/uL (150-450)
[2023-11-03 06:26] LABS: ANION GAP 15.4 mEq/L (7-13); BUN/CREATININE RATIO 25.6 (No establ ref range); CALCIUM 9.5 mg/dL (8.5-10.1); CREATININE 1.56 mg/dL (0.70-1.30); EST CRCL DRUG DOSING (CG) 44.91 mL/min; POTASSIUM,K 4.4 mmol/L (3.5-5.1); PROTEIN TOTAL,TP 7.8 g/dL (6.4-8.2)
[2023-11-03 06:27] LABS: BILIRUBIN TOTAL 0.8 mg/dL (0.2-1.0); MAGNESIUM 2.2 mg/dL (1.8-2.4)
[2023-11-03] MEDS: Sodium Chloride 0.9% 1,000 ML IV SCH (06:27)
[2023-11-03 06:28] LABS: A/G RATIO 0.53; ALBUMIN 2.7 g/dL (3.4-5.0)
[2023-11-03] MEDS: Azithromycin 500 MG in Sodium Chloride 0.9% 250 ML IV ONE (06:31)
[2023-11-03] MEDS: cefTRIAXone 1 GM Vial IVPUSH ONE (06:31)
[2023-11-03] MEDS: Morphine 2 MG/ML SYRINGE IVPUSH ONE (06:33)
[2023-11-03 06:44] LABS: APPEARANCE,URINE CLEAR (CLEAR); BILIRUBIN,URINE NEGATIVE (NEGATIVE); COLOR,URINE YELLOW (YELLOW); GLUCOSE,URINE NEGATIVE (NEGATIVE); KETONES,URINE NEGATIVE (NEGATIVE); OCCULT BLOOD,URINE LARGE (NEGATIVE); PH,URINE 5.5 (5.0-9.0); PROTEIN,URINE 100 (NEGATIVE)
[2023-11-03 06:45] LABS: LEUKOCYTE ESTERASE,URINE NEGATIVE (NEGATIVE); NITRITE,URINE NEGATIVE (NEGATIVE)
[2023-11-03 07:25] LABS: BACTERIA,URINE FEW /HPF (0-FEW/HPF); EPITHELIAL CELLS,URINE FEW /HPF (NOT SEEN); MUCUS,URINE FEW /LPF (NOT SEEN); RBC,URINE SEMI-PACKED /HPF (0-5)
[2023-11-03 07:26] LABS: GRANULAR CASTS,URINE RARE
[2023-11-03] MEDS ORDERED: Metoprolol Tartrate 5 MG/5 ML SDV IVPUSH PRN (09:14)
[2023-11-03] MEDS ORDERED: hydrALAZINE 20 MG/ML SDV IVPUSH PRN (09:14)
[2023-11-03 09:31] LABS: C-REACTIVE PROTEIN 11.63 ng/dL (<=0.50)
[2023-11-03] MEDS ORDERED: Ondansetron 4 MG/2 ML SDV IVPUSH PRN (10:08)
[2023-11-03] MEDS ORDERED: Magnesium Hydroxide 400 MG/5 ML Susp 30 ML Cup PO PRN (10:08)
[2023-11-03] MEDS ORDERED: guaiFENesin/Dextromethorphan 100-10 MG/5 ML Soln 5 ML Cup PO PRN (10:15)
[2023-11-03 10:51] LABS: T4 FREE 1.63 ng/dL (0.76-1.46); TSH ULTRASENSITIVE 1.06 uIU/mL (0.36-3.74)
[2023-11-03] MEDS: Lactated Ringers 1,500 ML IV SCH (10:52)
[2023-11-03] MEDS: DULoxetine 30 MG Cap PO ONE (10:52)
[2023-11-03] MEDS: Dexamethasone 4 MG Tab PO ONE (10:53)
[2023-11-03] MEDS: Pantoprazole 40 MG Vial IVPUSH ONE (10:53)
[2023-11-03] MEDS: tiZANidine 4 MG Tab PO ONE (10:53)
[2023-11-03] MEDS: fentaNYL 12 MCG/HR Transdermal Patch TRDERM SCH (11:00)
[2023-11-03] MEDS: guaiFENesin 600 MG Tab.ER PO ONE (11:01)
[2023-11-03] MEDS: Piperacillin/Tazobactam 3.375 GM in Sodium Chloride 0.9% 100 ML IV ONE (11:01)
[2023-11-03] MEDS: Piperacillin/Tazobactam 4.5 GM in Sodium Chloride 0.9% 100 ML IV SCH (16:38)
[2023-11-03] MEDS ORDERED: Glucagon,Human Recombinant 1 MG Vial IM PRN (20:34)
[2023-11-03] MEDS ORDERED: 50% Dextrose in Water 50 ML Syringe IVPUSH PRN (20:34)
[2023-11-03 21:59] LABS: INR 2.3 (0.9-1.2); PROTHROMBIN TIME 22.2 SEC (9.0-12.0)
[2023-11-03] MEDS ORDERED: Cefepime 1 GM Vial IVPUSH SCH (22:00)
[2023-11-03] MEDS: Cefepime 2 GM Vial IVPUSH SCH (22:00)
[2023-11-03] MEDS: guaiFENesin 600 MG Tab.ER PO SCH (22:00)
[2023-11-03] MEDS: tiZANidine 4 MG Tab PO PRN (22:00)
[2023-11-03] MEDS: Dexamethasone 4 MG Tab PO SCH (22:00)
[2023-11-03] MEDS: Check Patch TRDERM SCH (22:00)
[2023-11-03] MEDS: Saccharomyces Boulardii (Probiotic) 250 MG Cap PO SCH (22:00)
[2023-11-03] MEDS: Albuterol/Ipratropium 3.0-0.5 MG/3 ML Neb Soln NEB PRN (22:00)
[2023-11-03 22:07] LABS: ALBUMIN 2.3 g/dL (3.4-5.0); ANION GAP 10.8 mEq/L (7-13); BILIRUBIN TOTAL 0.8 mg/dL (0.2-1.0); CALCIUM 8.7 mg/dL (8.5-10.1); CREATININE 1.75 mg/dL (0.70-1.30); EST CRCL DRUG DOSING (CG) 43.59 mL/min; MAGNESIUM 2.3 mg/dL (1.8-2.4); POTASSIUM,K 4.8 mmol/L (3.5-5.1); PROTEIN TOTAL,TP 6.8 g/dL (6.4-8.2)
[2023-11-03 22:10] LABS: A/G RATIO 0.51
[2023-11-04 07:14] LABS: INR 2.4 (0.9-1.2); PROTHROMBIN TIME 23.9 SEC (9.0-12.0)
[2023-11-04 07:21] LABS: ALBUMIN 2.2 g/dL (3.4-5.0); ANION GAP 13.3 mEq/L (7-13); BILIRUBIN TOTAL 0.9 mg/dL (0.2-1.0); C-REACTIVE PROTEIN 14.5 ng/dL (<=0.50); CALCIUM 8.7 mg/dL (8.5-10.1); CREATININE 1.5 mg/dL (0.70-1.30); EST CRCL DRUG DOSING (CG) 50.86 mL/min; MAGNESIUM 2.3 mg/dL (1.8-2.4); POTASSIUM,K 4.3 mmol/L (3.5-5.1); PROTEIN TOTAL,TP 6.8 g/dL (6.4-8.2)
[2023-11-04 07:24] LABS: A/G RATIO 0.48
[2023-11-04] MEDS ORDERED: Azithromycin 500 MG in Sodium Chloride 0.9% 250 ML IV SCH (09:30)
[2023-11-04] MEDS: Enoxaparin 40 MG/0.4 ML Syringe SUBCUT SCH (09:44)
[2023-11-04] MEDS: Docusate Sodium 100 MG Cap PO SCH (09:45)
[2023-11-04] MEDS: DULoxetine 30 MG Cap PO SCH (09:45)
[2023-11-04] MEDS: Insulin Lispro 100 Units/ML 3 ML Vial SUBCUT SCH (09:45)
[2023-11-04] MEDS: Metoprolol Succinate 25 MG Tab.ER PO SCH (09:46)
[2023-11-04] MEDS: Polyethylene Glycol 3350 Powder 17 GM Packet PO PRN (12:37)
[2023-11-04] MEDS ORDERED: Bisacodyl 10 MG Supp RECTAL PRN (18:30)
[2023-11-04] MEDS: Sennosides/Docusate Sodium 50-8.6 MG Tab PO PRN (22:00)
[2023-11-04] MEDS: Warfarin 5 MG Tab PO ONE (22:00)
[2023-11-05 06:28] LABS: HEMATOCRIT 43.5 % (40.0-54.0); MEAN CORPUSCULAR HEMOGLOBIN 30.8 pg (27.0-34.0); MEAN CORPUSCULAR HGB CONC 32.2 g/dL (33.0-35.0); MEAN CORPUSCULAR VOLUME 95.6 fL (80-100); PLATELET COUNT,PLT 168 10^3/uL (150-450); RED BLOOD CELL COUNT 4.55 10^6/uL (4.6-6.2); WHITE BLOOD CELL COUNT,WBC 16.2 10^3/uL (5.0-10.0)
[2023-11-05 06:40] LABS: BASOPHILS PERCENT AUTO 0.1 % (0.0-1.0); LYMPHOCYTES PERCENT AUTO 5.3 % (20.5-50.1); MONOCYTES PERCENT AUTO 6.3 % (2-8); NEUTROPHILS PERCENT AUTO 88.3 % (42.2-75.2)
[2023-11-05 06:45] LABS: ALBUMIN 2.1 g/dL (3.4-5.0); BILIRUBIN TOTAL 0.7 mg/dL (0.2-1.0); BUN/CREATININE RATIO 26.7 (No establ ref range); CALCIUM 9.2 mg/dL (8.5-10.1); CREATININE 1.2 mg/dL (0.70-1.30); EST CRCL DRUG DOSING (CG) 63.57 mL/min; MAGNESIUM 2.7 mg/dL (1.8-2.4)
[2023-11-05 06:49] LABS: A/G RATIO 0.43; INR 2.8 (0.9-1.2); PROTHROMBIN TIME 26.7 SEC (9.0-12.0)
[2023-11-05 07:26] LABS: BAND PERCENT MAN 2 %; LYMPHOCYTES PERCENT MAN 6 % (20-50); MONOCYTES PERCENT MAN 4 % (2-8); SEG NEUTROPHILS PERCENT MAN 88 % (42-75)
[2023-11-05] MEDS: Potassium Chloride 10 MEQ Tab.ER PO SCH (09:56)
[2023-11-05] MEDS: Aspirin 81 MG Tab.EC PO SCH (09:56)
[2023-11-05] MEDS: Multivitamins with Iron/Calcium/Folic Acid/Minerals Tab PO SCH (09:57)
[2023-11-05] MEDS: Escitalopram 10 MG Tab PO SCH (09:57)
[2023-11-05] MEDS: Acetaminophen 325 MG Tab PO PRN (12:20)
[2023-11-05] MEDS ORDERED: Benzonatate 100 MG Cap PO PRN (14:45)
[2023-11-05] MEDS: Warfarin 5 MG Tab PO SCH (15:03)
[2023-11-05] MEDS: Vancomycin 2 GM in Sodium Chloride 0.9% 500 ML IV SCH (16:16)
[2023-11-06 06:40] LABS: BASOPHILS PERCENT AUTO 0.1 % (0.0-1.0); EOSINOPHILS PERCENT AUTO 0.1 % (1.0-3.0); HEMATOCRIT 45.9 % (40.0-54.0); HEMOGLOBIN 14.7 g/dL (14.0-18.0); LYMPHOCYTES PERCENT AUTO 5.4 % (20.5-50.1); MEAN CORPUSCULAR HEMOGLOBIN 30.6 pg (27.0-34.0); MEAN CORPUSCULAR VOLUME 95.6 fL (80-100); MONOCYTES PERCENT AUTO 6.3 % (2-8); NEUTROPHILS PERCENT AUTO 88.1 % (42.2-75.2); PLATELET COUNT,PLT 214 10^3/uL (150-450); WHITE BLOOD CELL COUNT,WBC 16.7 10^3/uL (5.0-10.0)
[2023-11-06 06:58] LABS: ALBUMIN 2.2 g/dL (3.4-5.0); BILIRUBIN TOTAL 0.8 mg/dL (0.2-1.0); BUN/CREATININE RATIO 24.8 (No establ ref range); C-REACTIVE PROTEIN 7.67 ng/dL (<=0.50); CALCIUM 9.3 mg/dL (8.5-10.1); CREATININE 1.25 mg/dL (0.70-1.30); EST CRCL DRUG DOSING (CG) 61.03 mL/min; INR 4.3 (0.9-1.2); MAGNESIUM 2.6 mg/dL (1.8-2.4); PROTEIN TOTAL,TP 7.3 g/dL (6.4-8.2); PROTHROMBIN TIME 40.3 SEC (9.0-12.0)
[2023-11-06 07:02] LABS: A/G RATIO 0.43
[2023-11-06] MEDS: fentaNYL 12 MCG/HR Transdermal Patch TRDERM SCH (11:08)
[2023-11-06] MEDS: Hydrochlorothiazide 25 MG Tab PO ONE (12:20)
[2023-11-06] MEDS ORDERED: Calcium Carbonate 500 MG Tab.Chew PO PRN (13:08)
[2023-11-06] MEDS ORDERED: Torsemide 20 MG Tab PO SCH (14:00)
[2023-11-06] MEDS: Empagliflozin 10 MG Tab PO SCH (17:58)
[2023-11-06] MEDS: Torsemide 20 MG Tab PO SCH (20:20)
[2023-11-07 06:28] LABS: BASOPHILS PERCENT AUTO 0.2 % (0.0-1.0); EOSINOPHILS PERCENT AUTO 0.3 % (1.0-3.0); HEMATOCRIT 45.3 % (40.0-54.0); HEMOGLOBIN 14.7 g/dL (14.0-18.0); LYMPHOCYTES PERCENT AUTO 7.2 % (20.5-50.1); MEAN CORPUSCULAR HEMOGLOBIN 30.3 pg (27.0-34.0); MEAN CORPUSCULAR HGB CONC 32.5 g/dL (33.0-35.0); MEAN CORPUSCULAR VOLUME 93.4 fL (80-100); MONOCYTES PERCENT AUTO 9.1 % (2-8); NEUTROPHILS PERCENT AUTO 83.2 % (42.2-75.2); PLATELET COUNT,PLT 230 10^3/uL (150-450); RED BLOOD CELL COUNT 4.85 10^6/uL (4.6-6.2); WHITE BLOOD CELL COUNT,WBC 14.6 10^3/uL (5.0-10.0)
[2023-11-07 06:38] LABS: INR 3.8 (0.9-1.2); PROTHROMBIN TIME 36.4 SEC (9.0-12.0)
[2023-11-07 06:49] LABS: ALBUMIN 2.1 g/dL (3.4-5.0); ANION GAP 9.5 mEq/L (7-13); BUN/CREATININE RATIO 26.1 (No establ ref range); C-REACTIVE PROTEIN 4.84 ng/dL (<=0.50); CALCIUM 9.2 mg/dL (8.5-10.1); CREATININE 1.19 mg/dL (0.70-1.30); EST CRCL DRUG DOSING (CG) 64.1 mL/min; MAGNESIUM 2.1 mg/dL (1.8-2.4); POTASSIUM,K 4.5 mmol/L (3.5-5.1); PROTEIN TOTAL,TP 7.2 g/dL (6.4-8.2)
[2023-11-07 06:52] LABS: A/G RATIO 0.41
[2023-11-07 13:32] VITALS: BP 120/68; PULSE 68
[2023-11-07] MEDS ORDERED: Warfarin 2.5 MG Tab PO ONE (14:00)
[2023-11-07] MEDS ORDERED: Warfarin 5 MG Tab PO SCH (14:00)
[2023-11-08] MEDS ORDERED: Warfarin 5 MG Tab PO SCH (14:00)
== END 2023-11-07 14:49 | DRG 871 ==
LOC: DL.ED 05:01 → DL.MS 06:45
PROVIDERS: ADMIT Internal Medicine; ATTEND Internal Medicine
DX: A41.02 Sepsis due to Methicillin resistant Staphylococcus aureus (principal); A41.9 Sepsis, unspecified organism; J18.9 Pneumonia, unspecified organism; J96.21 Acute and chronic respiratory failure with hypoxia; E87.1 Hypo-osmolality and hyponatremia; N17.9 Acute kidney failure, unspecified; E87.20 Acidosis, unspecified; R65.20 Severe sepsis without septic shock; A41.89 Other specified sepsis; Z66 Do not resuscitate; H54.7 Unspecified visual loss; M54.50 Low back pain, unspecified; M79.605 Pain in left leg; I48.91 Unspecified atrial fibrillation; G89.29 Other chronic pain; G62.9 Polyneuropathy, unspecified; F41.9 Anxiety disorder, unspecified; F32.A Depression, unspecified; M54.16 Radiculopathy, lumbar region; I49.5 Sick sinus syndrome; G47.33 Obstructive sleep apnea (adult) (pediatric); E87.8 Other disorders of electrolyte and fluid balance, not elsewhere classified; R73.9 Hyperglycemia, unspecified; E83.52 Hypercalcemia; E88.09 Other disorders of plasma-protein metabolism, not elsewhere classified; E86.0 Dehydration; M48.061 Spinal stenosis, lumbar region without neurogenic claudication; E87.5 Hyperkalemia; Y95 Nosocomial condition; Z99.81 Dependence on supplemental oxygen; I10 Essential (primary) hypertension; E78.00 Pure hypercholesterolemia, unspecified; E66.9 Obesity, unspecified; Z79.2 Long term (current) use of antibiotics; Z88.1 Allergy status to other antibiotic agents; Z79.51 Long term (current) use of inhaled steroids; Z95.0 Presence of cardiac pacemaker; Z87.81 Personal history of (healed) traumatic fracture; Z68.35 Body mass index [BMI] 35.0-35.9, adult; Z98.890 Other specified postprocedural states; Z88.8 Allergy status to other drugs, medicaments and biological substances; Z79.82 Long term (current) use of aspirin; Z79.899 Other long term (current) drug therapy; Z68.41 Body mass index [BMI] 40.0-44.9, adult; Z87.891 Personal history of nicotine dependence; R06.02 Shortness of breath
CPT/HCPCS: 36415; 71045; 80053; 81001; 82306; 83605; 83735; 83880; 84145; 84439; 84443; 85025; 86140; 87040 ×2; 87077; 87186; 87804 ×2; 96374; 96375; 99285 ×2; A9270; J0456; J0696; J2270; J7030; J7050; U0002; 72131; 80202; 82947; 85610; 97161-GP; 97530-GP; 99233; 99239; 99291; C9113; J0692; J1650; J1815-GY; J2020; J2543; J3370; J3490; J7040; J7120; J7620-GY; J8540

== ENCOUNTER 2024-02-10 14:40 | Inpatient (IN) | payer MEDICARE, BC ==
[2024-02-10 16:18] LABS: BASOPHILS PERCENT AUTO 0.3 % (0.0-1.0); EOSINOPHILS PERCENT AUTO 3.2 % (1.0-3.0); HEMATOCRIT 31.5 % (40.0-54.0); HEMOGLOBIN 9.8 g/dL (14.0-18.0); LYMPHOCYTES PERCENT AUTO 23.3 % (20.5-50.1); MEAN CORPUSCULAR HEMOGLOBIN 30.9 pg (27.0-34.0); MEAN CORPUSCULAR HGB CONC 31.1 g/dL (33.0-35.0); MEAN CORPUSCULAR VOLUME 99.4 fL (80-100); MONOCYTES PERCENT AUTO 8.5 % (2-8); NEUTROPHILS PERCENT AUTO 64.7 % (42.2-75.2); PLATELET COUNT,PLT 307 10^3/uL (150-450); RED BLOOD CELL COUNT 3.17 10^6/uL (4.6-6.2); WHITE BLOOD CELL COUNT,WBC 9.8 10^3/uL (5.0-10.0)
[2024-02-10 16:35] LABS: INR 1.3 (0.9-1.2); PROTHROMBIN TIME 13.6 SEC (9.0-12.0)
[2024-02-10 16:37] LABS: APPEARANCE,URINE CLEAR (CLEAR); BILIRUBIN,URINE NEGATIVE (NEGATIVE); COLOR,URINE YELLOW (YELLOW); GLUCOSE,URINE NEGATIVE (NEGATIVE); KETONES,URINE NEGATIVE (NEGATIVE); LEUKOCYTE ESTERASE,URINE NEGATIVE (NEGATIVE); NITRITE,URINE NEGATIVE (NEGATIVE); OCCULT BLOOD,URINE LARGE (NEGATIVE); PROTEIN,URINE NEGATIVE (NEGATIVE); UROBILINOGEN,URINE 0.2 mg/dL (0.2-1.0)
[2024-02-10 16:43] LABS: A/G RATIO 0.5; ALBUMIN 2.5 g/dL (3.4-5.0); ANION GAP 9.3 mEq/L (7-13); BILIRUBIN TOTAL 0.7 mg/dL (0.2-1.0); BUN/CREATININE RATIO 15.1 (No establ ref range); CALCIUM 9.2 mg/dL (8.5-10.1); CREATININE 1.72 mg/dL (0.70-1.30); EST CRCL DRUG DOSING (CG) 44.35 mL/min; MAGNESIUM 1.8 mg/dL (1.8-2.4); POTASSIUM,K 4.3 mmol/L (3.5-5.1); PROTEIN TOTAL,TP 7.5 g/dL (6.4-8.2)
[2024-02-10] MEDS: Furosemide 40 MG/4 ML VIAL IVPUSH ONE (16:45)
[2024-02-10] MEDS: Acetaminophen 325 MG Tab PO ONE (16:45)
[2024-02-10 16:52] LABS: RBC,URINE 50-75 /HPF (0-5); WBC,URINE 0-5 /HPF (0-5/HPF)
[2024-02-10 16:53] LABS: BACTERIA,URINE FEW /HPF (0-FEW/HPF); EPITHELIAL CELLS,URINE FEW /HPF (NOT SEEN); MUCUS,URINE FEW /LPF (NOT SEEN)
[2024-02-10 16:59] LABS: CORONAVIRUS COVID-19 NAA NEGATIVE (NEGATIVE); INFLUENZA A NAA NEGATIVE (NEGATIVE); INFLUENZA B NAA NEGATIVE (NEGATIVE)
[2024-02-10] MEDS: Enoxaparin 100 MG/1 ML Syringe SUBCUT ONE (18:23)
[2024-02-10 20:07] VITALS: BP 129/75; PULSE 79
== END 2024-02-10 20:00 | DRG 292 ==
LOC: DL.ED 14:40 → DL.MS 17:29 → UNDOADMIN 17:29 → UNDODISIN 20:00
PROVIDERS: ADMIT Internal Medicine; ATTEND Internal Medicine
DX: I11.0 Hypertensive heart disease with heart failure (principal); I48.20 Chronic atrial fibrillation, unspecified; J84.9 Interstitial pulmonary disease, unspecified; N17.9 Acute kidney failure, unspecified; I50.9 Heart failure, unspecified; Z66 Do not resuscitate; I48.91 Unspecified atrial fibrillation; R79.1 Abnormal coagulation profile; D64.9 Anemia, unspecified; I25.10 Atherosclerotic heart disease of native coronary artery without angina pectoris; Z68.32 Body mass index [BMI] 32.0-32.9, adult; I25.2 Old myocardial infarction; Z79.2 Long term (current) use of antibiotics; Z79.51 Long term (current) use of inhaled steroids; G89.29 Other chronic pain; M54.50 Low back pain, unspecified; Z88.5 Allergy status to narcotic agent; H54.7 Unspecified visual loss; E78.00 Pure hypercholesterolemia, unspecified; E66.9 Obesity, unspecified; G62.9 Polyneuropathy, unspecified; F32.A Depression, unspecified; F41.9 Anxiety disorder, unspecified; G47.30 Sleep apnea, unspecified; Z95.0 Presence of cardiac pacemaker; Z88.1 Allergy status to other antibiotic agents; Z79.01 Long term (current) use of anticoagulants; Z87.891 Personal history of nicotine dependence; Z79.899 Other long term (current) drug therapy; Z98.890 Other specified postprocedural states
CPT/HCPCS: 0240U; 36415; 71045; 80053; 81001; 82947; 83735; 83880; 84484; 85025; 85379; 85610; 93005; 93010; 96374; 99285; 99285-25; A9270-GY; J1650; J1940